=== PATIENT | female | born 1995 | race Caucasian/White ===

== ENCOUNTER 2020-03-24 07:21 | Emergency (ER) | payer OTHER, SELFPAY ==
[2020-03-24] VITALS (11 sets, daily range): BP systolic 100–116; BP diastolic 64–72; PULSE 68–82; RESP 15–16; TEMP 36.1; O2SAT 95–100
--- NOTE | ~2020-03-24 | XR_ITS ---
EXAMINATION: XR chest 1V portable DATE: 03/24/2020 08:47 INDICATION: Upper abdominal pain. TECHNIQUE: A single frontal view of the chest was obtained. COMPARISON: Chest 2 views 09/18/2018 FINDINGS: The chest demonstrates clear lungs without pneumonia, pleural effusion, or pneumothorax. Th e heart size is normal. IMPRESSION: 1. No acute cardiopulmonary disease. Reviewed, dictated and finalized at location A.
--- NOTE | ~2020-03-24 | CT_ITS ---
EXAMINATION: CT abdomen pelvis w con DATE: 03/24/2020 09:06 INDICATION: Upper abdominal pain. Nausea and fever. TECHNIQUE: Computed tomography (CT) of the abdomen and pelvis was performed with 100 mL Omnipaque 350 intravenous contrast. Automated exposure control and iterative reconstruction technique were employe d. The dose-length product was 394.89 mGy-cm. COMPARISON: None. FINDINGS: The visualized portions of the lung bases are clear without pneumonia or pleural effusion. The heart size is normal. No pericardial effusion. The liver, gallbladder, spleen, pancreas, adrenal glands, and kidneys are normal. There are no dilated loops of bowel. The appendix is normal. There is an intrauterine device in expected position. There is trace pelvic ascites. There is a borderline en larged right external iliac lymph node, likely reactive. There is a small umbilical hernia containing fat. There is a benign bone island in right femoral head. IMPRESSION: 1. Small umbilical hernia containing fat. Reviewed, dictated and finalized at location A.
--- NOTE | ~2020-03-24 | US_ITS ---
EXAMINATION: US right upper quadrant DATE: 03/24/2020 11:11 INDICATION: Right upper quadrant abdominal pain. Nausea. TECHNIQUE: Multiple grayscale and Doppler ultrasound images of the abdomen were obtained. COMPARISON: CT dated 03/24/2020 FINDINGS: Liver has normal echogenicity and contour, with a smooth surface. No liver lesion identified. No intr ahepatic biliary duct dilation suspected. Portal venous flow was seen in the hepatopetal, normal dire ction and has normal Doppler waveform. The gallbladder is normal in appearance. Small amount of hypoe choic sludge in the dependent gallbladder. There is no shadowing cholelithiasis. The common bile duct measures 4 mm, which is normal. Sonographic [place] sign was reported as negative by the field crop farm worker. Right kidney measures 9.6 x 4.0 x 5.3 cm with normal echogenicity and no hydronephrosis. The pancreat ic head and body are normal in appearance. The pancreatic tail is not visualized. Visualized portion s of the proximal to mid inferior vena cava and aorta are normal. IMPRESSION: 1. Small amount of sludge but no cholelithiasis within the otherwise normal gallbladder. Reviewed, dictated and finalized at location B. IMPRESSION: 1. Small amount of sludge but no cholelithiasis within the otherwise normal gal lbladder.
[2020-03-24 07:56] LABS: Hematocrit 41.7 % (37.0-47.0); Hemoglobin 14.6 g/dL (12.0-15.0); Mean Corpuscular Hemoglobin 30.5 pg (26-34); Mean Corpuscular Volume 87.2 fl (80-100); Mean Platelet Volume 9.5 fl (7.4-10.4); Platelet Count Result 157 k/mm3 (150-375); Red Blood Count 4.78 M/mm3 (4.2-5.4)
[2020-03-24 08:01] LABS: Alanine Aminotransferase 175 U/L (4-35); Albumin Level 4.1 g/dL (3.5-5.1); Alkaline Phosphatase 102 U/L (38-126); Anion Gap 9 mmol/L (8-16); Aspartate Amino Transferase 164 U/L (14-36); Bilirubin,Total 0.4 mg/dL (0.2-1.3); Blood Urea Nitrogen 7 mg/dL (7-17); Calcium 9.1 mg/dL (8.4-10.2); Carbon Dioxide 27 mmol/L (22-30); Chloride 102 mmol/L (98-107); Estimated CRCL calculation 91 ml/min; Estimated Glomerular Filt Rate > 60; Glucose 90 mg/dL (65-105); Lipase 53 U/L (23-300); Potassium 3.9 mmol/L (3.4-5.0); Sodium 138 mmol/L (137-145)
[2020-03-24 08:07] LABS: Add Urine Microscopic? YES; Appearance Urine Cloudy (Clear); Bacteria Urine Trace /hpf; Bilirubin Urine Negative (Negative); Blood Urine Negative (Negative); Color Urine Yellow (Yellow); Glucose Urine UA Negative (Negative); Ketones Urine Trace mg/dL (Negative); Leukocyte Esterase Ur Negative LEU/UL (Negative); Mucus Urine Moderate /lpf; Nitrate Urine Negative (Negative); Protein Urine 1+ mg/dL (Negative); Specific Grav Ur 1.027 (1.001-1.035); Squamous Epithelial Cell Urine Many /hpf (Few); Urobilinogen Urine Negative mg/dL (<2.0); WBC Urine 0-3 /hpf
--- NOTE | 2020-03-24 08:12 | PC.NURSE ---
ERP AT BEDSIDE FOR ASSESSMENT.
[2020-03-24 08:26] LABS: Atypical Lymphocytes Present; Band Neutrophils Percent 5 % (0-6); Eosinophils Absolute Manual 0.11 K/mm3 (0.02-0.5); Eosinophils Percent Manual 1 % (0-4); Lymphocytes Absolute Manual 8.03 K/mm3 (1.1-4.5); Monocytes Absolute Manual 0.88 K/mm3 (0.1-0.90); Monocytes Percent Manual 8 % (3-9); Neutrophils Absolute Manual 1.98 K/mm3 (1.7-7.2); Neutrophils Percent Manual 13 % (46-73); Total Cells Counted 100
[2020-03-24 08:27] LABS: Platelet Estimate Adequate (Adequate)
--- NOTE | 2020-03-24 08:30 | ED.ABDPAIN ---
HPI - Abdominal Pain General Chief Complaint: Abdominal Pain Stated Complaint: abd pain Time Seen by Provider: 03/24/20 07:38 Source: patient and family Mode of arrival: ambulatory Limitations: no limitations History of Present Illness HPI narrative: 24 years old white female presents with upper abdominal pain bilaterally started 5 days ago. Patient also with running fever at that time, COVID-19 was negative at that time. The pain is constant, squeezing, associated with nausea and possible constipation Patient denies any vomiting, diarrhea, chest pain or back pain or urinary symptoms. 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 No history of abdominal surgery. History of GERD and depression. Patient does not smoke or drink or uses drugs. Related Data Home Medications Medication Instructions Recorded Confirmed escitalopram oxalate [Lexapro] 5 mg PO DAILY 03/24/20 Allergies Allergy/AdvReac Type Severity Reaction Status Date / Time amoxicillin Allergy Unknown Verified 09/19/18 13:56 Penicillins Allergy Unknown Verified 09/13/11 09:31 Sulfa (Sulfonamide Allergy Unknown Verified 09/19/18 13:56 Antibiotics) CEPHALEXIN MONOHYDRATE Allergy Intermediate SEVERE Uncoded 12/08/17 16:45 STOMACH UPSET/YEAST INFECTION PENICILLIN Allergy Intermediate SEVERE Uncoded 12/30/10 13:55 NAUSEA/YEAST INFECTION Review of Systems Review of Systems: Narrative: CONSTITUTIONAL: Denies fever, chills, or sweats. EYES: Denies visual changes, redness, or discharge. ENT: Denies rhinorrhea, congestion, sore throat, or otalgia. CARDIOVASCULAR: Denies chest pain, palpitations, or edema. RESPIRATORY: Denies cough or dyspnea. GASTROINTESTINAL: Denies abdominal pain, nausea, vomiting, or diarrhea. GENITOURINARY: Denies dysuria or hematuria. SKIN: Denies rash or itching. MUSCULOSKELETAL: Denies back pain, joint pain, or myalgia. NEUROLOGIC: Denies headache, numbness, or weakness. PSYCHIATRIC: Denies anxiety or depression. [facility] Past Medical History Medical History Depression GERD (gastroesophageal reflux disease) Family History Family History Father Family history of thyroid disease Hypertension Grandparent Acute myocardial infarction, Onset Age: 75 Other Family history of cardiovascular disease Family history of malignant melanoma Family history of malignant neoplasm of breast Family history of malignant neoplasm of skin Family history of mental disorder Family history of restless legs syndrome Family history of suicide Social History Social History Smoking status: Never smoker Alcohol intake: current Gender identity (if verbalized by the patient): Female Exam Narrative: Exam Narrative: General appearance: Well-developed, well-nourished, does not look in pain, mother at the bedside Skin: Normal color Head: Normocephalic, nontraumatic Eyes: Clear conjunctiva ENT: Oropharynx normal, ears normal, nose normal Neck: Supple, nontender Chest and respiratory: Airway patent, no respiratory distress, no accessory muscle use Heart: Regular rate/rhythm Abdomen: Soft, mild to moderate tenderness right upper quadrant, right lower quadrant, no guarding or rebound no organomegaly, quiet bowel sounds Vascular: Normal peripheral pulses, normal capillary refill. Musculoskeletal: Normal range of motion, nontender back Neurologic: Alert and oriented ?3, DIETARY AIDE TEACHER is normal as tested, no gross motor deficit Course Vital Signs Vital signs: Vital Signs Blood Pressure 110/69
[2020-03-24] MEDS: HYDROmorphone HCL INJ (*CRX) 1 MG/ML SYR 0.5 MG IV PUSH (08:47)
[2020-03-24] MEDS: ONDANSETRON INJ 4 MG/2 ML VIAL IV PUSH (08:47)
[2020-03-24] MEDS: SODIUM CHLORIDE 0.9% IV 1,000 ML 999 ML IV CONT (08:48)
--- NOTE | 2020-03-24 08:55 | PC.NURSE ---
PT TO CT AT THIS TIME IN STRETCHER.
--- NOTE | 2020-03-24 11:30 | PC.NURSE ---
BRIANNA KILGORE INFORMED THAT PT RESULTS ARE BACK AND FAMILY WOULD LIKE AN UPDATE FROM HIM. NO RESPONSE.
== END 2020-03-24 12:10 | disposition home or self-care (01) ==
PROVIDERS: Emergency Provider Emergency Medicine; PCP Family Medicine
DX: R10.10 Upper abdominal pain, unspecified (principal); F32.9 Major depressive disorder, single episode, unspecified; K21.9 Gastro-esophageal reflux disease without esophagitis
CPT/HCPCS: 36415; 71045; 74177; 76705; 80053; 81001; 81025; 83690; 85025; 96361; 96374; 96375; 99284; J1170; J2405; J7030; Q9967

== ENCOUNTER 2020-03-28 09:01 | Outpatient (CLI) | payer OTHER, SELFPAY ==
[2020-03-28 09:24] LABS: Basophils Absolute Auto 0.2 K/mm3 (0.0-0.1); Eosinophils Percent Auto 0.3 % (0-4.4); Hematocrit 42.1 % (37.0-47.0); Hemoglobin 14.3 g/dL (12.0-15.0); Immature Granulocyte Absolute 0.03 K/mm3 (0.00-0.031); Immature Granulocyte Percent A 0.2 % (0-0.5); Lymphocytes Absolute Auto 11.58 K/mm3 (0.9-3.2); Lymphocytes Percent Auto 75.3 % (18.3-44.2); Mean Corpuscular Hemoglobin 30.4 pg (26-34); Mean Corpuscular Volume 89.6 fl (80-100); Mean Platelet Volume 9.4 fl (7.4-10.4); Monocytes Absolute Auto 0.9 K/mm3 (0.1-0.6); Monocytes Percent Auto 5.5 % (2.6-8.5); Neutrophils Absolute Auto 2.7 K/mm3 (1.3-6.7); Neutrophils Percent Auto 17.7 % (45.5-73.1); Platelet Count Result 192 k/mm3 (150-375); Red Cell Distribution Width 12.4 % (11.5-14.5); White Blood Count 15.4 K/mm3 (4.5-10.0)
[2020-03-28 09:37] LABS: Alanine Aminotransferase 443 U/L (4-35); Albumin Level 4.4 g/dL (3.5-5.1); Alkaline Phosphatase 109 U/L (38-126); Anion Gap 7 mmol/L (8-16); Aspartate Amino Transferase 191 U/L (14-36); Bilirubin,Total 0.3 mg/dL (0.2-1.3); Blood Urea Nitrogen 9 mg/dL (7-17); Calcium 9.3 mg/dL (8.4-10.2); Carbon Dioxide 30 mmol/L (22-30); Chloride 103 mmol/L (98-107); Estimated Glomerular Filt Rate > 60; Glucose 80 mg/dL (65-105); Potassium 4.3 mmol/L (3.4-5.0); Sodium 140 mmol/L (137-145)
[2020-03-28 12:39] LABS: Atypical Lymphocytes Present; Platelet Estimate Adequate (Adequate)
== END 2020-03-28 09:02 | disposition home or self-care (01) ==
PROVIDERS: PCP Family Medicine; Visit Provider Physician Assistant
DX: R10.9 Unspecified abdominal pain (principal); R74.8 Abnormal levels of other serum enzymes
CPT/HCPCS: 36415; 80053; 85025

== ENCOUNTER 2020-04-03 08:52 | Outpatient (CLI) | payer OTHER, SELFPAY ==
--- NOTE | ~2020-04-03 | NM_ITS ---
EXAMINATION: NM hepatobiliary w pharm DATE: 04/03/2020 11:23 INDICATION: Abdominal pain COMPARISON: None. TECHNIQUE: 5 mCi Tc-99m mebrofenin (Choletec) was administered intravenously. Scintigraphic images o f the abdomen were obtained for one hour. 1.4 mcg sincalide (Kinevac) was administered by slow intrav enous infusion, and imaging was continued for 30 minutes. Gallbladder ejection fraction was calculate d by the technologist. FINDINGS: There is normal clearance of radiotracer from the blood pool. There is homogeneous tracer uptake by t he liver. Activity progresses to the gallbladder and bowel. The gallbladder ejection fraction (GBEF) is 27% (normal 10-90%, but most patient with gallbladder dysfunction have GBEF < 35% which does over lap with the normal range). IMPRESSION: 1. Gallbladder ejection fraction is at the lower limits of normal. This could be normal but is also within the range of overlap with gallbladder dysfunction or chronic cholecystitis in the appropriate clinical setting. Reviewed, dictated and finalized at location A.
== END 2020-04-03 08:53 | disposition home or self-care (01) ==
PROVIDERS: PCP Family Medicine; Visit Provider Family Medicine
DX: R10.9 Unspecified abdominal pain (principal)
CPT/HCPCS: 78227; A9537; J2805

== ENCOUNTER 2020-04-04 07:29 | Outpatient (CLI) | payer OTHER, SELFPAY ==
[2020-04-04 07:46] LABS: Basophils Absolute Auto 0.1 K/mm3 (0.0-0.1); Basophils Percent Auto 0.8 % (0.2-1.2); Eosinophils Absolute Auto 0.1 K/mm3 (0-0.3); Eosinophils Percent Auto 1.1 % (0-4.4); Hematocrit 39.6 % (37.0-47.0); Hemoglobin 13.4 g/dL (12.0-15.0); Immature Granulocyte Absolute 0.02 K/mm3 (0.00-0.031); Immature Granulocyte Percent A 0.3 % (0-0.5); Mean Corpuscular HGB Conc 33.8 g/dl (32-36); Mean Corpuscular Hemoglobin 30.7 pg (26-34); Mean Corpuscular Volume 90.6 fl (80-100); Monocytes Absolute Auto 0.8 K/mm3 (0.1-0.6); Monocytes Percent Auto 11.6 % (2.6-8.5); Neutrophils Absolute Auto 1.3 K/mm3 (1.3-6.7); Neutrophils Percent Auto 18.2 % (45.5-73.1); Platelet Count Result 261 k/mm3 (150-375); Red Blood Count 4.37 M/mm3 (4.2-5.4); Red Cell Distribution Width 12.6 % (11.5-14.5); White Blood Count 7.1 K/mm3 (4.5-10.0)
[2020-04-04 08:01] LABS: Alanine Aminotransferase 73 U/L (4-35); Albumin Level 4.1 g/dL (3.5-5.1); Alkaline Phosphatase 70 U/L (38-126); Anion Gap 6 mmol/L (8-16); Aspartate Amino Transferase 42 U/L (14-36); Bilirubin,Total 0.5 mg/dL (0.2-1.3); Blood Urea Nitrogen 10 mg/dL (7-17); Calcium 8.9 mg/dL (8.4-10.2); Carbon Dioxide 28 mmol/L (22-30); Chloride 105 mmol/L (98-107); Estimated Glomerular Filt Rate > 60; Glucose 83 mg/dL (65-105); Potassium 4.1 mmol/L (3.4-5.0); Sodium 139 mmol/L (137-145)
[2020-04-04 08:40] LABS: Hepatitis B Surface Antigen Negative (Negative)
[2020-04-04 08:46] LABS: HAV RESULT Negative (Negative); Hepatitis B Core IgM Result Negative (Negative)
[2020-04-04 08:57] LABS: Hepatitis C Virus Antibody Negative (Negative)
[2020-04-04 09:04] LABS: Atypical Lymphocytes Present; Platelet Estimate Adequate (Adequate)
== END 2020-04-04 07:30 | disposition home or self-care (01) ==
PROVIDERS: PCP Family Medicine; Visit Provider Physician Assistant
DX: R10.9 Unspecified abdominal pain (principal); R74.8 Abnormal levels of other serum enzymes
CPT/HCPCS: 36415; 80053; 80074; 85025

== ENCOUNTER 2020-05-11 14:00 | Outpatient (CLI) | payer OTHER, SELFPAY ==
[2020-05-11 14:30] LABS: Alanine Aminotransferase 18 U/L (4-35); Albumin Level 4.5 g/dL (3.5-5.1); Alkaline Phosphatase 61 U/L (38-126); Amylase 66 U/L (30-110); Aspartate Amino Transferase 30 U/L (14-36); Bilirubin,Total 0.6 mg/dL (0.2-1.3); Lipase 60 U/L (23-300)
== END 2020-05-11 14:01 | disposition home or self-care (01) ==
LOC: ANHSURGERY 14:03
PROVIDERS: PCP Family Medicine; Visit Provider Surgery
DX: Z01.818 Encounter for other preprocedural examination (principal); K81.1 Chronic cholecystitis
CPT/HCPCS: 36415; 80076; 82150; 83690; 86850; 86900; 86901

== ENCOUNTER 2020-05-16 00:44 | Outpatient (CLI) | payer OTHER, SELFPAY ==
[2020-05-16 19:13] LABS: SARS-CoV-2 RNA PCR Negative
== END 2020-05-16 00:45 | disposition home or self-care (01) ==
LOC: ANHCOVIDDT 00:44
PROVIDERS: PCP Family Medicine; Visit Provider Surgery
DX: Z01.818 Encounter for other preprocedural examination (principal); Z20.828 Contact with and (suspected) exposure to other viral communicable diseases
CPT/HCPCS: 87635; C9803; U0003

== ENCOUNTER 2020-05-19 01:14 | Day surgery (SDC) | payer OTHER, SELFPAY ==
[2020-05-06 15:38] VITALS: BMI 30.3
[2020-05-19] VITALS (10 sets, daily range): BP systolic 101–125; BP diastolic 43–72; PULSE 67–89; RESP 10–20; TEMP 36.1–36.3; O2SAT 100
[2020-05-19] MEDS: ACETAMINOPHEN 500 MG TABLET 1000 MG PO (08:20)
[2020-05-19] MEDS: KETOROLAC 15 MG/ML VIAL (*BKC) IV PUSH (08:30)
[2020-05-19] MEDS: LACTATED RINGERS 1,000 ML 30 ML IV CONT ×2 (08:30→10:48)
--- NOTE | 2020-05-19 08:30 | WPDANESEPPF ---
Anes - Initial Pre Proc Eval Procedure: Operation Date: 05/19/20 10:00 Proposed Procedures p Laparoscopic Cholecystectomy, Possible Open - Andry Weiss DO Date/Time: 05/19/20 08:30 Surgeon: Andry Weiss DO Pre Op Diagnosis: Chronic Cholecystitis Patient Data Age: 24 Gender: F Height: 5 ft Weight: 70.45 kg Allergies Allergy/AdvReac Type Severity Reaction Status Date / Time amoxicillin Allergy Intermediate Rash Verified 05/19/20 08:19 Sulfa (Sulfonamide Allergy Intermediate Rash Verified 05/19/20 08:19 Antibiotics) CEPHALEXIN MONOHYDRATE Allergy Intermediate SEVERE Uncoded 05/19/20 08:19 STOMACH UPSET/YEAST INFECTION PENICILLIN Allergy Intermediate Rash Uncoded 05/19/20 08:19 Home Medications Medication Instructions Recorded Confirmed Type escitalopram oxalate [Lexapro] 10 mg PO DAILY 03/24/20 05/19/20 History omeprazole 20 mg capsule,delayed 20 mg PO DAILY #30 cap 05/14/20 05/19/20 Rx release Patient hx anesthesia problems: none Family hx anesthesia problems: none PMFSH Past Medical History Medical History Costochondritis Depression GERD (gastroesophageal reflux disease) Pyelonephritis Unspecified asthma, uncomplicated Surgical History Surgical History H/O wisdom tooth extraction Family History Family History Father Family history of thyroid disease Hypertension Grandparent Acute myocardial infarction, Onset Age: 75 Other Family history of cardiovascular disease Family history of malignant melanoma Family history of malignant neoplasm of breast Family history of malignant neoplasm of skin Family history of mental disorder Family history of restless legs syndrome Family history of suicide Social History Social History Smoking status: Never smoker Second hand tobacco smoke exposure: No Alcohol intake: current Drinks per week: 6 Alcohol use details: socially Substance use: never Living arrangements: with family Gender identity (if verbalized by the patient): Female Spiritual care concerns: No Anes - Eval Final PreProcedure Day of Procedure 05/19/20 08:30 Patient weight: normal Heart: regular rate and rhythm Lungs: clear to auscultation Airway: Mallampati scale class II Neurological: alert and oriented Last oral intake: >/= 8 hours ASA classification: II Emergent: no Anesthetic plan: proceed Anesthesia type and monitoring: general ETT and standard monitoring Informed Consent: The patient's anesthetic plan and its attendant risks and benefits were discussed with the patient/family/POA. Questions were solicited and answers provided to the satisfaction of the patient/family/POA.
--- NOTE | 2020-05-19 09:35 | PM.IMHP ---
H&P: HPI History of Present Illness Date/Time: 05/19/20 09:35 Chief complaint: Chronic Cholecystitis Narrative: Deya Henson is a 24 year old female who presents for lap belinda. She reports no changes since last seen in office. Review of Systems Review of Systems: All systems reviewed & are unremarkable except as noted in HPI and below Constitutional: Constitutional: Denies chills, Denies fever(s), Denies headache(s) and Denies weight loss Eyes: Eyes: Denies change in vision ENT: Denies dizziness, Denies headache(s), Denies neck mass and Denies throat swelling Cardiovascular: Cardiovascular: Denies chest pain, Denies lightheadedness and Denies dyspnea Respiratory: Respiratory: Denies cough, Denies dyspnea and Denies wheezing Gastrointestinal: Gastrointestinal: Denies abdominal pain, Denies change in bowel habits, Denies nausea and Denies vomiting Genitourinary: Genitourinary: Denies hematuria and Denies dysuria Musculoskeletal: Musculoskeletal: Reports as per HPI Integumentary/Breasts: Skin/Breast: Reports as per HPI Neurologic: Denies dizziness and Denies headache(s) Allergic/Immunologic: Allergic/Immunologic: Denies throat swelling and Denies wheezing PMFSH Past Medical History Medical History Costochondritis Depression GERD (gastroesophageal reflux disease) Pyelonephritis Unspecified asthma, uncomplicated Surgical History Surgical History H/O wisdom tooth extraction Family History Family History Father Family history of thyroid disease Hypertension Grandparent Acute myocardial infarction, Onset Age: 75 Other Family history of cardiovascular disease Family history of malignant melanoma Family history of malignant neoplasm of breast Family history of malignant neoplasm of skin Family history of mental disorder Family history of restless legs syndrome Family history of suicide Social History Social History Smoking status: Never smoker Second hand tobacco smoke exposure: No Alcohol intake: current Drinks per week: 6 Alcohol use details: socially Substance use: never Living arrangements: with family Gender identity (if verbalized by the patient): Female Spiritual care concerns: No Meds Home Medications and Allergies Home Medications Medication Instructions Recorded Confirmed Type escitalopram oxalate [Lexapro] 10 mg PO DAILY 03/24/20 05/19/20 History omeprazole 20 mg capsule,delayed 20 mg PO DAILY #30 cap 05/14/20 05/19/20 Rx release Allergies Allergy/AdvReac Type Severity Reaction Status Date / Time amoxicillin Allergy Intermediate Rash Verified 05/19/20 08:19 Sulfa (Sulfonamide Allergy Intermediate Rash Verified 05/19/20 08:19 Antibiotics) CEPHALEXIN MONOHYDRATE Allergy Intermediate SEVERE Uncoded 05/19/20 08:19 STOMACH UPSET/YEAST INFECTION PENICILLIN Allergy Intermediate Rash Uncoded 05/19/20 08:19 Exam Const: General: no acute distress and alert Orientation/consciousness: patient oriented x3 HENMT: Head: normocephalic and atraumatic Ears: hearing grossly normal bilaterally General nose exam: Normal nares present Mouth: Yes Normal oral and palatal mucosa present Eyes: Periorbital: periorbital findings normal Sclera: sclerae normal EOM: EOMs intact bilaterally Neck: Neck: normal visual inspection, no lymphadenopathy and trachea midline Chest: Chest palpation & inspection: normal inspection of the chest Resp: Effort & Inspection: normal respiratory effort Auscultation: clear to auscultation bilaterally Cardio: Jugular venous distension: no JVD Rate: regular rate Rhythm: regular rhythm Heart sounds: S1 normal heart sound present and S2 normal heart sound present Peripheral
[2020-05-19] MEDS: CLINDAMYCIN 900 MG/D5W 50 ML 900 MG/50 ML PIGGYBACK 50 MG IVPB (09:47)
--- NOTE | 2020-05-19 10:43 | PM.PROC ---
Procedure Note - Detailed Date of procedure: 05/19/20 Pre-op diagnosis: Chronic Cholecystitis Post-op diagnosis: other (Chronic cholecystitis, peritoneal lesion) Procedure performed: 1. Laparoscopic Cholecystectomy 2. Laparoscopic excision of peritoneal lesion Description of procedure: Procedure as well as risks, benefits, and alternatives were discussed with patient. Written consent was obtained and placed in chart prior to procedure. The patient was brought back to surgical suite. Patient was placed in supine position on operating table. Time-out was done to confirm patient and procedure. Patient was then intubated by the anesthesia department. Abdomen was prepped and draped in sterile fashion using chlorhexidine prep. 0.5% bupivacaine with epinephrine was infiltrated at each site of incision. An 11 millimeter vertical incision was made at the superior portion of the umbilicus using a 15 blade scalpel. Blunt dissection was carried down to the linea alba. The linea alba was then incised using a 15 blade scalpel. The peritoneum was then bluntly entered. An 11 millimeter trocar was inserted and cabon dioxied insuflation was used to create a pneumoperitoneum. The camera was inserted and the abdomen was inspected. The patient was placed in reverse Trendelenberg position and rotated slightly to the left. A 5 millimeter incision was made in the epigastric region, and a 5 millimeter trocar was inserted under direct visualization. Two 5 millimeter incisions were made in the right upper quadrant, and two 5 millimeter trocars were inserted under direct visualization. The gallbladder was identified and grasped at the fundus and retracted superiorly. It was then grasped at the infundibulum retracted laterally. Careful dissection around the neck of the gallbladder was performed using blunt dissection with a [place] grasper and hook electrocautery. The cystic duct was identified, and a window was created behind it. The cystic artery was also identified and a window was created behind it. The critical view of safety was identified, visualizing the cystic duct running directly into the neck of the gallbladder, and the cystic artery running directly into the wall of the gallbladder. A 5 millimeter clip support team member was then used to place 2 clips proximally and 1 clip distally on both the cystic duct and cystic artery. They were then both transected using endoscopic scissors. Once safely away from the calvin hepatitis, the gallbladder was dissected free from the liver bed using hook electrocautery. Hemostasis was achieved along the way. The gallbladder was removed completely and then removed through the umbilical port. The liver bed was then inspected. Hemostasis appeared adequate, and our clips appeared secure. The area was gently irrigated with sterile saline. No other abnormalities were seen. The patient was flattened out in bed, and 1 final inspection was made around the abdominal cavity. There were several small peritoneal lesions near the diaphragm on the right side. Each of these were only about 1 mm in size. They were dark and pigmented. One of the peritoneal lesions was excised using hook electrocautery and scissors and this was sent to the lab for pathology. The ports were then removed under direct visualization, the camera was removed, and the pneumoperitoneum was released. The fascia of the umbilical incision was approximated using an 0 Vicryl [id number] suture. The skin of the incisions was approximated using 4-0 Monocryl subcuticular sutures. Exofin glue was applied on top. The patient was then awakened from anesthesia, extubated, and transferred to recovery. Anesthesia: GETA and local (0.5% bupivicaine with epinephrine) Surgeon: Andry Weiss DO Estimated blood loss (mL): 5 Complications: No immediate complications Condition: stable Disposition: same day Findings: This is a 24-year-old woman who presented with recurrent right upper qu
[2020-05-19] MEDS: ONDANSETRON INJ 4 MG/2 ML VIAL IV PUSH (11:07)
[2020-05-19] MEDS: diphenhydrAMINE HCl INJ 50 MG/ML VIAL 12.5 MG IV PUSH (12:02)
[2020-05-19] MEDS: fentaNYL CITRATE INJ (*CRX) 100 MCG/2 ML VIAL 25 MCG IV PUSH ×2 (12:22→12:36)
[2020-05-19] MEDS: oxyCODONE HCL (*CRX) 5 MG TAB IR PO (12:50)
== END 2020-05-19 13:50 | disposition home or self-care (01) ==
PROVIDERS: PCP Family Medicine; Visit Provider Surgery
PROC: 0FT44ZZ Resection of Gallbladder, Percutaneous Endoscopic Approach (ICD-10-PCS; CPT 47562; principal; 2020-05-19 10:00)
DX: K81.1 Chronic cholecystitis (principal); N80.3 Endometriosis of pelvic peritoneum; J45.909 Unspecified asthma, uncomplicated; K21.9 Gastro-esophageal reflux disease without esophagitis; F32.9 Major depressive disorder, single episode, unspecified
CPT/HCPCS: 47562; 58662; 88304; 88305; A9270; J0330; J1100; J1200; J1885; J2250; J2405; J2704; J2710; J3010; J7030; J7120

== ENCOUNTER 2021-10-07 10:42 | Emergency (ER) | payer OTHER, SELFPAY ==
[2021-10-07 10:57] VITALS: BP 114/62; PULSE 72; RESP 18; TEMP 36.6; O2SAT 100
--- NOTE | 2021-10-07 11:16 | ED.URI ---
HPI - URI/Sore Throat General Chief Complaint: Upper Respiratory Infection Stated Complaint: Sore Throat,Bilateral Ear Irritation Time Seen by Provider: 10/07/21 11:00 Source: patient Mode of arrival: ambulatory Limitations: no limitations History of Present Illness HPI Narrative: Deya is a 25-year-old female patient presenting to the clinic today with complaints of sore throat x3 days. She reports that she gets strep frequently and is concerned that she may have strep. She denies any fever or chills. Has had a dry cough and ear itching. MD elicited complaint: sore throat and nasal congestion Related Data Home Medications Medication Instructions Recorded Confirmed escitalopram oxalate [Lexapro] 10 mg PO DAILY 03/24/20 10/07/21 Allergies Allergy/AdvReac Type Severity Reaction Status Date / Time amoxicillin Allergy Intermediate Rash Verified 10/07/21 11:28 Sulfa (Sulfonamide Allergy Intermediate Rash Verified 10/07/21 11:28 Antibiotics) CEPHALEXIN MONOHYDRATE Allergy Intermediate SEVERE Uncoded 10/07/21 11:28 STOMACH UPSET/YEAST INFECTION PENICILLIN Allergy Intermediate Rash Uncoded 10/07/21 11:28 Review of Systems Review of Systems: Pertinent positives per HPI. Patient denies any fever, chills, rash, headache, visual changes, dizziness, cough, shortness of breath, chest pain, palpitations, nausea, vomiting, diarrhea, constipation, abdominal pain, or any urinary issues. [facility] Past Medical History Medical History Chronic cholecystitis Costochondritis Depression Gallbladder sludge GERD (gastroesophageal reflux disease) Pyelonephritis Unspecified asthma, uncomplicated Surgical History Surgical History H/O wisdom tooth extraction Hx laparoscopic cholecystectomy 05.19.20 Laparoscopic Cholecystectomy, Laparoscopic excision of peritoneal lesion Family History Family History Father Family history of thyroid disease Hypertension Grandparent Acute myocardial infarction, Onset Age: 75 Other Family history of cardiovascular disease Family history of malignant melanoma Family history of malignant neoplasm of breast Family history of malignant neoplasm of skin Family history of mental disorder Family history of restless legs syndrome Family history of suicide Social History Social History Smoking status: Never smoker Second hand tobacco smoke exposure: No Alcohol intake: current Drinks per week: 6 Alcohol use details: socially Substance use: never Gender identity (if verbalized by the patient): Female Spiritual care concerns: No Comments At the time of my signature, I reviewed and agree with the nursing past medical, surgical, social, and family history. There is no relevant family history pertinent to the patient complaint. Exam Narrative: General: Well-developed, well nourished, in no apparent distress Head: Normocephalic, atraumatic Eyes: Pupils equally round and reactive to light bilaterally, EOM intact, sclera and conjunctive clear, no discharge, lids normal Ears: TMs intact and dull ear canals clear, no drainage, grossly hearing normal. Nose: Nares patent, clear discharge, no inflammation, no sinus tenderness. Mouth: Oral pharynx without lesions or masses, good dentition, MMM. Oropharynx mildly red with very mild tonsillar swelling-small area to the left medial tonsil has white exudate Neck: Supple, trachea midline, no enlargement of anterior or posterior cervical nodes, no thyroid masses or goiter palpable. Cardio: Regular rate and rhythm, s1 and s2 normal, no murmur appreciated. Resp: Clear to auscultation bilaterally, no rhonchi, rales, wheezing or rubs Course Course Emergency Course: Portions of this r
== END 2021-10-07 11:27 | disposition home or self-care (01) ==
PROVIDERS: Emergency Provider Nurse Practitioner Family; PCP Family Medicine
DX: J02.9 Acute pharyngitis, unspecified (principal); K21.9 Gastro-esophageal reflux disease without esophagitis; J45.909 Unspecified asthma, uncomplicated
CPT/HCPCS: 87081; 87880; 99213; G0463

== ENCOUNTER 2021-12-03 11:04 | Outpatient (CLI) | payer OTHER, SELFPAY ==
--- NOTE | ~2021-12-03 | US_ITS ---
US breast RT complete DATE: 12/03/2021 11:40 INDICATION: Left breast lump, 5:00 area TECHNIQUE: Real-time and color flow imaging of complete right breast was performed COMPARISON: None FINDINGS: No suspicious mass or shadowing or increased vascularity is identified in the left breast. IMPRESSION: BI-RADS Category 1: Negative Reviewed, dictated and finalized at Location A. Reviewed, dictated and finalized at location A.
== END 2021-12-03 11:05 | disposition home or self-care (01) ==
PROVIDERS: PCP Family Medicine; Visit Provider Obstetrics & Gynecology
DX: N63.14 Unspecified lump in the right breast, lower inner quadrant (principal)
CPT/HCPCS: 76641

== ENCOUNTER 2022-09-16 11:13 | Outpatient (CLI) | payer BC, SELFPAY | END 2022-09-16 11:14 | disposition home or self-care (01) | LOC: ANHLAB 11:15 | PROVIDERS: PCP Family Medicine; Visit Provider Student in an Organized Health Care Education/Training Program | DX: R30.0 Dysuria (principal) | CPT/HCPCS: 87086 ==

== ENCOUNTER 2022-11-28 17:37 | Outpatient (CLI) | payer BC, SELFPAY ==
[2022-11-28 17:51] LABS: Hematocrit 38.6 % (37.0-47.0); Hemoglobin 13.4 g/dL (12.0-15.0)
== END 2022-11-28 17:38 | disposition home or self-care (01) ==
LOC: ANHLAB 17:38
PROVIDERS: PCP Family Medicine; Visit Provider Student in an Organized Health Care Education/Training Program
DX: Z97.5 Presence of (intrauterine) contraceptive device (principal)
CPT/HCPCS: 36415; 85014; 85018

== ENCOUNTER 2022-12-01 01:30 | Day surgery (SDC) | payer BC, SELFPAY ==
[2022-11-24 12:54] VITALS: BMI 31.4
--- NOTE | 2022-11-24 13:16 | PC.NURSE ---
Report to the Outpatient Waiting Room, entrance under the green pavilion located off [facility], at time _1200_ on date 12/01/22___. Planned Procedure Time: __1400_. Time changes happen often and if your time is changed the preop area will call you the afternoon before. - You and your visitor will be asked to self-screen and do not enter if you have any COVID symptoms. - A mask is optional within the hospital at this time. Patients may have clear liquids (water, carbonated beverages, clear teas, apple juice) until 3 hours prior to surgery with a maximum of 20 ounces. - No food from midnight until time of surgery Take the following medications with a SIP of water the morning of surgery: ESCITALOPRAM, JUNEL DO NOT STOP ANY OF YOUR OTHER PRESCRIPTION MEDICATIONS PRIOR TO SURGERY ?EXCEPT THE FOLLOWING Medications to discontinue per physician N/A Date to take last dose Please no make-up, nail burkinan, hairspray, perfume, deodorant, or body powder the day of surgery. No jewelry (including any body piercings) or valuables the day of surgery, leave them at home. Please take a shower or bath the night before, or the morning of, surgery with an antibacterial soap. Wear comfortable, loose fitting clothing. - Jewelry must be removed prior to entering the operating room. Rings and piercings that are not removed may be cut off. - The hospital will not accept responsibility for valuables. - Please leave all valuables, including medications, at home the day of surgery. If you are going home after surgery, a licensed stunt driver must drive you home. - NO public transportation without another adult if you receive anesthesia. - We recommend that an adult stay with you for 24 hours following discharge. - We also recommend that you do not drive, make important decision, drink alcoholic beverages, or take any drugs that were not prescribed by your health care provider for at least 24 hours after your discharge time. Follow any additional instructions given to you from your surgeon. If you or anyone in your household have experienced Covid symptoms in the past week, please notify your surgeon or the nurse liaison at the phone number below for possible testing. Telephone instructions given to _ALEXA_and asked if any additional questions and then verbalized understanding. Patient advised to call surgeon office or pre surgery nurse liaison [phone] if any additional questions.
--- NOTE | 2022-12-01 08:31 | PM.IMHP ---
H&P: HPI History of Present Illness Date/Time: 12/01/22 08:31 Chief Complaint: Retained IUD Narrative: 27-year-old female who presents for operative hysteroscopy and removal of retained IUD. Patient initially presented to the office with abnormal uterine bleeding in the setting of ParaGard IUD. Patient had IUD removed in the office. After removal of the IUD, it was noted that 1 of the arms was missing. Patient had pelvic ultrasound which showed a 2 mm hypo echogenic area in the right uterine horn. Suspect retained piece of IUD. Will plan for hysteroscopic removal Review of Systems Cardiovascular: Cardiovascular: Denies chest pain, Denies leg edema, Denies palpitations, Denies dyspnea and Denies dyspnea on exertion Respiratory: Respiratory: Denies cough, Denies dyspnea and Denies dyspnea on exertion Gastrointestinal: Gastrointestinal: Denies abdominal pain, Denies constipation, Denies diarrhea, Denies nausea and Denies vomiting Genitourinary: Genitourinary: Denies hematuria, Denies urinary frequency, Denies dysuria, Denies pelvic pain, Denies urinary incontinence and Denies vaginal discharge Neurologic: Reports system reviewed and no additional complaints, except as documented Psychiatric: Psychiatric: Reports no additional psychiatric complaints Endocrine: Endocrine: Denies palpitations PMFSH Past Medical History Medical History (Updated 12/01/22 @ 08:33 by Bob Perla MD) Cholecystitis, chronic Chronic cholecystitis Costochondritis Depression Encounter for insertion of ParaGard IUD 2016 Gallbladder sludge GERD (gastroesophageal reflux disease) Pyelonephritis Unspecified asthma, uncomplicated Surgical History Surgical History H/O wisdom tooth extraction Hx laparoscopic cholecystectomy 12.20 Laparoscopic Cholecystectomy, Laparoscopic excision of peritoneal lesion Family History Family History Father Family history of thyroid disease Hypertension Grandparent Acute myocardial infarction, Onset Age: 75 Other Family history of cardiovascular disease Family history of malignant melanoma Family history of malignant neoplasm of breast Family history of malignant neoplasm of skin Family history of mental disorder Family history of restless legs syndrome Family history of suicide Social History Social History (Updated 08/19/22 @ 09:03 by Jaleesa Gabriel) Social History: Caffeine- daily Smoking status: Never smoker Second hand tobacco smoke exposure: No Alcohol intake: never Drinks per week: 6 Alcohol use details: socially Substance use: never Substance use type: does not use Lack of Transportation: No Lack of Food: Never True Current Housing: I Have Housing Concerned About Future Housing: No Difficulty Paying Gas/Electric Bills: No Difficulty Paying for Meds: No Currently Unemployed: No Education: Associate Degree Difficulty w/ Childcare or Family Care: No Living arrangements: with family Gender identity (if verbalized by the patient): Female Spiritual care concerns: No Meds Home Medications and Allergies Home Medications Medication Instructions Recorded Confirmed Type escitalopram oxalate 20 mg tablet 20 mg PO DAILY #90 tabs 09/09/22 11/24/22 Rx copper 380 square mm intrauterine 1 device intrauterine ONCE 09/16/22 11/24/22 History device (ParaGard T 380A) norethindrone acetate 1.5 1 tablet PO DAILY 11/24/22 11/24/22 History mg-ethinyl estradiol 30 mcg tablet (Junel) Allergies Allergy/AdvReac Type Severity Reaction Status Date / Time amoxicillin Allergy Intermediate Rash Verified 11/24/22 13:13 Sulfa (Sulfonamide Allergy Intermediate Rash Verified 11/24/22 13:13 Antibiotics) CEPHALEXIN MONOHYDRATE Allergy Intermediate SEVERE Uncoded 11/24/22 13:13 STOMACH UPSET/YEAST INFECTION PENICILLIN All
[2022-12-01] MEDS: LACTATED RINGERS 1,000 ML 30 ML IV CONT (14:15)
[2022-12-01] MEDS: ACETAMINOPHEN 500 MG TABLET 1000 MG PO (14:15)
[2022-12-01 14:25] VITALS: BP 119/66; PULSE 72; RESP 14; TEMP 36.6; O2SAT 99
--- NOTE | 2022-12-01 14:26 | WPDANESEPPF ---
Anes - Initial Pre Proc Eval Procedure: Operation Date: 12/01/22 15:30 Proposed Procedures p Hysteroscopy with Removal of Intrauterine Device - Bob Perla MD Date/Time: 12/01/22 14:26 Surgeon: Bob Perla MD Pre Op Diagnosis: Broken IUD Patient Data Age: 27 Gender: F Height: 1.52 m Weight: 73 kg Allergies Allergy/AdvReac Type Severity Reaction Status Date / Time amoxicillin Allergy Intermediate Rash Verified 11/24/22 13:13 Sulfa (Sulfonamide Allergy Intermediate Rash Verified 11/24/22 13:13 Antibiotics) CEPHALEXIN MONOHYDRATE Allergy Intermediate SEVERE Uncoded 11/24/22 13:13 STOMACH UPSET/YEAST INFECTION PENICILLIN Allergy Intermediate Rash Uncoded 11/24/22 13:13 Home Medications Medication Instructions Recorded Confirmed Type escitalopram oxalate 20 mg tablet 20 mg PO DAILY #90 tabs 09/09/22 11/24/22 Rx copper 380 square mm intrauterine 1 device intrauterine ONCE 09/16/22 11/24/22 History device (ParaGard T 380A) norethindrone acetate 1.5 1 tablet PO DAILY 11/24/22 11/24/22 History mg-ethinyl estradiol 30 mcg tablet (Junel) Patient hx anesthesia problems: none Family hx anesthesia problems: none Results Review: All pre-operative results and documents have been reviewed as part of the pre-operative evaluation. [facility] Past Medical History Medical History Cholecystitis, chronic Chronic cholecystitis Costochondritis Depression Encounter for insertion of ParaGard IUD 2016 Gallbladder sludge GERD (gastroesophageal reflux disease) Pyelonephritis Unspecified asthma, uncomplicated Surgical History Surgical History H/O wisdom tooth extraction Hx laparoscopic cholecystectomy 05.19.20 Laparoscopic Cholecystectomy, Laparoscopic excision of peritoneal lesion Family History Family History Father Family history of thyroid disease Hypertension Grandparent Acute myocardial infarction, Onset Age: 75 Other Family history of cardiovascular disease Family history of malignant melanoma Family history of malignant neoplasm of breast Family history of malignant neoplasm of skin Family history of mental disorder Family history of restless legs syndrome Family history of suicide Social History Social History Social History: Caffeine- daily Smoking status: Never smoker Second hand tobacco smoke exposure: No Alcohol intake: never Drinks per week: 6 Alcohol use details: socially Substance use: never Substance use type: does not use Lack of Transportation: No Lack of Food: Never True Current Housing: I Have Housing Concerned About Future Housing: No Difficulty Paying Gas/Electric Bills: No Difficulty Paying for Meds: No Currently Unemployed: No Education: Associate Degree Difficulty w/ Childcare or Family Care: No Living arrangements: with family Gender identity (if verbalized by the patient): Female Spiritual care concerns: No Anes - Eval Final PreProcedure Day of Procedure 12/01/22 14:26 Patient weight: obese Heart: regular rate and rhythm Lungs: clear to auscultation Airway: Mallampati scale class II Neurological: alert and oriented Last oral intake: >/= 8 hours ASA classification: II Emergent: no Anesthetic plan: proceed Anesthesia type and monitoring: general GIVS and standard monitoring Results Review: All pre-operative results and documents have been reviewed as part of the pre-operative evaluation. Informed Consent: The patient's anesthetic plan and its attendant risks and benefits were discussed with the patient/family/POA. Questions were solicited and answers provided to the satisfaction of the patient/family/POA.
[2022-12-01] MEDS: LIDOCAINE HCL 1% LOCAL INJ 10 ML VIAL 8 ML INFILTRATE (16:19)
[2022-12-01 16:37] VITALS: BP 120/67; PULSE 72; RESP 14; O2SAT 100
--- NOTE | 2022-12-01 16:37 | P.OP_ITS ---
Procedure Note - Detailed Date of Procedure 12/01/22 Pre-op Diagnosis Broken IUD Post-op Diagnosis Same Procedure Performed paracervical block hysteroscopy Surgeon Bob Perla MD Anesthesia General Indications retained IUD Findings normal appearing intrauterine cavity. Normal tubal ostia bilaterally. Description of Procedure Deya Henson presents for hysteroscopy with removal of IUD. She was counse led as to the indications, risks, benefits, and alternatives to surgery, with the risks including bleeding, infection, damage to surrounding organs, VTE, and complications of anesthesia. Her verbal and written consent was obtained. PROCEDURE: The patient was taken to the OR and general anesthesia induced. She was prepped and draped in Marcus stirrups with support of the back and bilateral lower extremities. I/O catheterization performed of the bladder. The above findings were noted. Infiltration with 1% lidocaine at the 3 and 9 o'clock cervical positions was performed. A single tooth tenaculum was placed on the anterior lip of the cervix. The cervix was dilated to allow introduction of the hysteroscope. Hysteroscopy, using a normal saline medium, was performed and showed the above findings. the endometrial cavity was clear of any parts of IUD. Bilateral tubal ostia were identified and noted to be patent. The patient tolerated the procedure well. Sponge, lap, and needle counts were c orrect. The patient was taken to the recovery room in stable condition. Estimated Blood Loss 5 Urine Output 25 Drains No Packing No Pathology None sent Complications No immediate complications Condition Stable Disposition PACU [facility] Billing Surgery - Charge Forward: Surgery Billing
[2022-12-01 17:05] VITALS: BP 119/79; PULSE 72; RESP 14; O2SAT 100
[2022-12-01 17:35] VITALS: BP 115/72; PULSE 69; RESP 14
== END 2022-12-01 17:35 | disposition home or self-care (01) ==
PROVIDERS: PCP Family Medicine; Visit Provider Student in an Organized Health Care Education/Training Program
PROC: 0U5B8ZZ Destruction of Endometrium, Via Natural or Artificial Opening Endoscopic (ICD-10-PCS; CPT 58563; principal; 2022-12-01 15:30)
DX: T83.39XA Other mechanical complication of intrauterine contraceptive device, initial encounter (principal); Y84.8 Other medical procedures as the cause of abnormal reaction of the patient, or of later complication, without mention of misadventure at the time of the procedure; F32.A Depression, unspecified; E66.9 Obesity, unspecified; Z68.31 Body mass index [BMI] 31.0-31.9, adult
CPT/HCPCS: 58562; A9270; J1100; J2250; J2405; J2704; J3010; J7120

== ENCOUNTER 2022-12-08 17:19 | Outpatient (CLI) | payer BC, SELFPAY ==
--- NOTE | ~2022-12-08 | XR_ITS ---
EXAM: XR pelvis min 3V DATE: 12/08/2022 17:36 HISTORY: T83.32XA - Displacement of intrauterine contraceptive dev... . COMPARISON: None available. FINDINGS: Normal mineralization. No fracture or dislocation. No lytic or blastic lesion. Joint space s and physes are maintained. No erosion or periosteal change. Soft tissues within normal limits. No r adiopaque foreign body. IMPRESSION: Normal pelvis radiograph findings. No IUD present. Reviewed, dictated and finalized at location K.
== END 2022-12-08 17:20 | disposition home or self-care (01) ==
PROVIDERS: PCP Family Medicine; Visit Provider Student in an Organized Health Care Education/Training Program
DX: T83.32XA Displacement of intrauterine contraceptive device, initial encounter (principal)
CPT/HCPCS: 72190

== ENCOUNTER 2022-12-31 08:08 | Emergency (ER) | payer BC, SELFPAY ==
[2022-12-31 08:30] VITALS: BP 115/65; PULSE 82; RESP 18; TEMP 36.7; O2SAT 100
--- NOTE | 2022-12-31 08:41 | ED.URI ---
HPI - URI/Sore Throat General Chief Complaint: Upper Respiratory Infection Stated Complaint: sorethroat Time Seen by Provider: 12/31/22 08:41 Source: patient, RN notes reviewed and old records reviewed Mode of arrival: ambulatory Limitations: no limitations History of Present Illness HPI Narrative: 27-year-old female presents to the [facility] with complaints of a sore throat intermittently for about a week has taken allergy medication. Has had intermittent laryngitis, postnasal drainage. denies fevers. Denies any other symptoms MD elicited complaint: sore throat Onset (ago): week(s) (1) Related Data Home Medications Medication Instructions Recorded Confirmed norethindrone acetate 1.5 1 tablet PO DAILY 11/24/22 12/31/22 mg-ethinyl estradiol 30 mcg tablet (June) Allergies Allergy/AdvReac Type Severity Reaction Status Date / Time amoxicillin Allergy Intermediate Rash Verified 12/31/22 08:44 Sulfa (Sulfonamide Allergy Intermediate Rash Verified 12/31/22 08:44 Antibiotics) CEPHALEXIN MONOHYDRATE Allergy Intermediate SEVERE Uncoded 12/31/22 08:44 STOMACH UPSET/YEAST INFECTION PENICILLIN Allergy Intermediate Rash Uncoded 12/31/22 08:44 Review of Systems Review of Systems: All systems reviewed & are unremarkable except as noted in HPI and below Constitutional: Constitutional: Reports no additional constitutional complaints Eyes: Eyes: Reports no additional eye complaints ENT: Reports as per HPI, Reports post nasal drip and Reports sore throat Cardiovascular: Cardiovascular: Reports no additional cardiovascular complaints, Denies chest pain and Denies dyspnea Respiratory: Respiratory: Reports no additional respiratory complaints, Denies chest congestion, Denies cough and Denies dyspnea Gastrointestinal: Gastrointestinal: Reports no additional gastrointestinal complaints, Denies abdominal pain, Denies nausea and Denies vomiting Musculoskeletal: Musculoskeletal: Reports no additional musculoskeletal complaints Integumentary/Breasts: Skin/Breast: Reports system reviewed and no additional complaints, except as docu Neurologic: Reports system reviewed and no additional complaints, except as documented Psychiatric: Psychiatric: Reports no additional psychiatric complaints Allergic/Immunologic: Allergic/Immunologic: Reports no additional allergic/immunologic complaints PMFSH Past Medical History Medical History Cholecystitis, chronic Chronic cholecystitis Costochondritis Depression Encounter for insertion of ParaGard IUD 2016 Gallbladder sludge GERD (gastroesophageal reflux disease) Pyelonephritis Unspecified asthma, uncomplicated Surgical History Surgical History H/O wisdom tooth extraction Hx laparoscopic cholecystectomy 05.19.20 Laparoscopic Cholecystectomy, Laparoscopic excision of peritoneal lesion Family History Family History Father Family history of thyroid disease Hypertension Grandparent Acute myocardial infarction, Onset Age: 75 Other Family history of cardiovascular disease Family history of malignant melanoma Family history of malignant neoplasm of breast Family history of malignant neoplasm of skin Family history of mental disorder Family history of restless legs syndrome Family history of suicide Social History Social History Social History: Caffeine- daily Smoking status: Never smoker Second hand tobacco smoke exposure: No Alcohol intake: never Drinks per week: 6 Alcohol use details: socially Substance use: never Substance use type: does not use Lack of Transportation: No Lack of Food: Never True Current Housing: I Have Housing Concerned About Future Housing: No Difficulty Paying Gas/Electric Bills: No
== END 2022-12-31 09:03 | disposition home or self-care (01) ==
PROVIDERS: Emergency Provider Nurse Practitioner; PCP Family Medicine
DX: R09.82 Postnasal drip (principal); J02.9 Acute pharyngitis, unspecified; K21.9 Gastro-esophageal reflux disease without esophagitis; J45.909 Unspecified asthma, uncomplicated
CPT/HCPCS: 87081; 87880; 99213; G0463

== ENCOUNTER 2023-02-24 10:01 | Outpatient (CLI) | payer BC, SELFPAY ==
[2023-02-24 19:09] LABS: Basophils Absolute Auto 0.1 K/mm3 (0.0-0.1); Basophils Percent Auto 0.4 % (0.2-1.2); Eosinophils Absolute Auto 0.1 K/mm3 (0-0.3); Eosinophils Percent Auto 0.8 % (0-4.4); Hematocrit 46.4 % (37.0-47.0); Hemoglobin 14.9 g/dL (12.0-15.0); Immature Granulocyte Absolute 0.04 K/mm3 (0.00-0.031); Immature Granulocyte Percent A 0.3 % (0-0.5); Lymphocytes Absolute Auto 3.62 K/mm3 (0.9-3.2); Lymphocytes Percent Auto 28.1 % (18.3-44.2); Mean Corpuscular HGB Conc 32.1 g/dl (32-36); Mean Corpuscular Hemoglobin 31.3 pg (26-34); Mean Corpuscular Volume 97.5 fl (80-100); Mean Platelet Volume 10.6 fl (7.4-10.4); Monocytes Absolute Auto 0.8 K/mm3 (0.1-0.6); Monocytes Percent Auto 6.1 % (2.6-8.5); Neutrophils Absolute Auto 8.3 K/mm3 (1.3-6.7); Neutrophils Percent Auto 64.3 % (45.5-73.1); Platelet Count Result 344 k/mm3 (150-375); Red Blood Count 4.76 M/mm3 (4.2-5.4); White Blood Count 12.9 K/mm3 (4.5-10.0)
[2023-02-24 19:37] LABS: Anion Gap 8 mmol/L (8-16); Blood Urea Nitrogen 13 mg/dL (7-17); Calcium 9.4 mg/dL (8.4-10.2); Carbon Dioxide 28 mmol/L (22-30); Chloride 101 mmol/L (98-107); Cholesterol 190 mg/dL (0-200); Estimated Glomerular Filt Rate > 60; Glucose 65 mg/dL (65-110); HDL Direct 79 mg/dL; Potassium 4.2 mmol/L (3.4-5.0); Sodium 137 mmol/L (137-145); Triglycerides 112 mg/dL (<150)
[2023-02-24 19:49] LABS: LDL Cholesterol Direct 94 mg/dL
[2023-02-24 19:54] LABS: Vitamin D 25 Hydroxy 61.4 ng/mL
[2023-02-24 20:04] LABS: Thyroid Stimulating Hormone 0.995 uIU/mL (0.465-4.680)
== END 2023-02-24 10:02 | disposition home or self-care (01) ==
LOC: ANHGOSHLAB 10:03
PROVIDERS: PCP Family Medicine; Visit Provider Nurse Practitioner Family
DX: F41.9 Anxiety disorder, unspecified (principal); K21.9 Gastro-esophageal reflux disease without esophagitis; N94.6 Dysmenorrhea, unspecified
CPT/HCPCS: 36415; 80048; 80061; 82306; 84443; 85025

== ENCOUNTER 2023-09-25 16:55 | Outpatient (CLI) | payer OTHER, SELFPAY ==
[2023-09-25 20:15] LABS: Beta HCG Quantitative < 2.39 mIU/ML
== END 2023-09-25 16:56 | disposition home or self-care (01) ==
LOC: ANHLAB 16:57
PROVIDERS: PCP Family Medicine; Visit Provider Student in an Organized Health Care Education/Training Program
DX: N91.2 Amenorrhea, unspecified (principal)
CPT/HCPCS: 36415; 84702

== ENCOUNTER 2023-11-23 16:57 | Emergency (ER) | payer OTHER, SELFPAY ==
[2023-11-23 17:08] VITALS: BP 115/72; PULSE 70; RESP 18; TEMP 36.7; O2SAT 99
[2023-11-23 17:10] VITALS: BP 115/72; PULSE 70; RESP 18; TEMP 36.7; O2SAT 99
--- NOTE | 2023-11-23 17:28 | ED.URI ---
HPI - URI/Sore Throat General Chief Complaint: Upper Respiratory Infection Stated Complaint: Cold symptoms Time Seen by Provider: 11/23/23 17:12 Source: patient, RN notes reviewed and old records reviewed Mode of arrival: ambulatory Limitations: no limitations History of Present Illness HPI Narrative: 28-[facility] to [facility] for complaint of sore throat and bilateral ear fullness for 3 days. Patient reports taking Tylenol with little to no relief at home. Patient denies cough, fever, shortness of breath, chest pain, difficulty swallowing, pertinent medical history. Patient blew tolerate fluids by mouth. Respirations even and nonlabored. Patient in no acute distress. Related Data Allergies Allergy/AdvReac Type Severity Reaction Status Date / Time amoxicillin Allergy Intermediate Rash Verified 11/23/23 17:09 Sulfa (Sulfonamide Allergy Intermediate Rash Verified 11/23/23 17:09 Antibiotics) PENICILLIN Allergy Intermediate Rash Uncoded 11/23/23 17:09 CEPHALEXIN MONOHYDRATE AdvReac Intermediate SEVERE Uncoded 11/23/23 17:09 STOMACH UPSET/YEAST INFECTION Review of Systems Review of Systems: All systems reviewed & are unremarkable except as noted in HPI and below Constitutional: Constitutional: Reports no additional constitutional complaints Eyes: Eyes: Reports no additional eye complaints ENT: Reports as per HPI, Reports otalgia ( bilateral ear fullness) and Reports sore throat Cardiovascular: Cardiovascular: Reports no additional cardiovascular complaints, Denies chest pain and Denies dyspnea Respiratory: Respiratory: Reports no additional respiratory complaints, Denies cough and Denies dyspnea Musculoskeletal: Musculoskeletal: Reports no additional musculoskeletal complaints Neurologic: Reports system reviewed and no additional complaints, except as documented Psychiatric: Psychiatric: Reports no additional psychiatric complaints PMFSH Past Medical History Medical History Cholecystitis, chronic Chronic cholecystitis Costochondritis Depression Encounter for insertion of ParaGard IUD 2017 Gallbladder sludge GERD (gastroesophageal reflux disease) Pyelonephritis Unspecified asthma, uncomplicated Surgical History Surgical History H/O wisdom tooth extraction Hx laparoscopic cholecystectomy 05.19.20 Laparoscopic Cholecystectomy, Laparoscopic excision of peritoneal lesion Family History Family History Father Family history of thyroid disease Hypertension Grandparent Acute myocardial infarction, Onset Age: 75 Other Family history of cardiovascular disease Family history of malignant melanoma Family history of malignant neoplasm of breast Family history of malignant neoplasm of skin Family history of mental disorder Family history of restless legs syndrome Family history of suicide Social History Social History Social History: Caffeine- daily Smoking status: Never smoker Second hand tobacco smoke exposure: No Alcohol intake: never Drinks per week: 6 Alcohol use details: socially Substance use: never Substance use type: does not use Lack of Transportation: No Lack of Food: Never True Current Housing: I Have Housing Concerned About Future Housing: No Difficulty Paying Gas/Electric Bills: No Difficulty Paying for Meds: No Currently Unemployed: No Education: Associate Degree Difficulty w/ Childcare or Family Care: No Living arrangements: with family Gender identity (if verbalized by the patient): Female Spiritual care concerns: No Comments At the time of my signature, I reviewed and agree with the nursing past medical, surgical, social, and family history. There is no relevant family hist
== END 2023-11-23 17:29 | disposition home or self-care (01) ==
PROVIDERS: Emergency Provider Nurse Practitioner Family; PCP Family Medicine
DX: H66.91 Otitis media, unspecified, right ear (principal); K21.9 Gastro-esophageal reflux disease without esophagitis; J45.909 Unspecified asthma, uncomplicated
CPT/HCPCS: 87081; 87880; 99213; G0463

== ENCOUNTER 2024-01-18 10:46 | Outpatient (CLI) | payer OTHER, SELFPAY ==
[2024-01-18 11:48] LABS: Beta HCG Quantitative < 2.39 mIU/ML
[2024-01-18 12:19] LABS: Trichomonas Vag PCR NOT DETECTED (NOT DETECTE)
[2024-01-18 12:43] LABS: Chlamydia trachomatis NOT DETECTED (NOT DETECTE); Neisseria gonorrhoeae PCR NOT DETECTED (NOT DETECTE)
[2024-01-19 12:03] LABS: Progesterone 22.9 ng/mL
[2024-01-23 09:29] LABS: Testosterone Free 3.9 pg/mL (0.1-6.4); Testosterone Total 50 ng/dL (2-45)
[2024-01-23 14:33] LABS: Anti Mullerian Hormone,Female 2.85 ng/mL (0.69-13.39)
== END 2024-01-18 10:47 | disposition home or self-care (01) ==
LOC: ANHLAB 10:48
PROVIDERS: PCP Family Medicine; Visit Provider Obstetrics & Gynecology
DX: N92.6 Irregular menstruation, unspecified (principal)
CPT/HCPCS: 36415; 84144; 84402; 84403; 84702; 87491; 87591; 87661

== ENCOUNTER 2024-03-05 06:52 | Outpatient (CLI) | payer OTHER, SELFPAY ==
--- NOTE | ~2024-03-05 | XR_ITS ---
EXAMINATION: XR hysterosalpingogram DATE: 03/05/2024 12:16 INDICATION: Female infertility, unspecified. TECHNIQUE: Fluoroscopy was performed by the radiologist during contrast infusion into the endometrial cavity of the uterus by the primary physician. Fluoroscopy exposure time was 0.7 minutes. The total number of images was 8. FINDINGS: The intrauterine cavity is normal in morphology. The left fallopian tube is normal with nor mal free intraperitoneal spillage of contrast. A right fallopian tube is not identified. IMPRESSION: 1. Normal intrauterine cavity and left fallopian tube. 2. Right fallopian tube not opacified. Sensitivity is decreased by the intraperitoneal contrast arisi ng from the left fallopian tube. Reviewed, dictated and finalized at location A. IMPRESSION: 1. Normal intrauterine cavity and left fallopian tube. 2. Right fallopian tube not opacified. Sensitivity is decreased by the intraper itoneal contrast arising from the left fallopian tube.
[2024-03-05 07:57] LABS: Beta HCG Quantitative < 2.39 mIU/ML
== END 2024-03-05 06:53 | disposition home or self-care (01) ==
PROVIDERS: PCP Family Medicine; Visit Provider Obstetrics & Gynecology
DX: N97.9 Female infertility, unspecified (principal)
CPT/HCPCS: 36415; 58340; 74740; 84702; Q9966

== ENCOUNTER 2024-03-08 09:49 | Outpatient (CLI) | payer OTHER, SELFPAY ==
--- NOTE | ~2024-03-08 | US_ITS ---
EXAMINATION: US pelvic complete w TV DATE: 03/08/2024 10:25 INDICATION: N92.6 - Irregular menstruation, unspecified TECHNIQUE: Multiple transabdominal and endovaginal sonographic images of the pelvis were obtained. COMPARISON: 07/01/2019. FINDINGS: Uterus: 7.2 x 3.0 x 4.4 cm. Endometrial complex measures 5 mm. Right Ovary: 3.7 x 1.8 x 3.3 cm. Vascular flow is present. No adnexal mass. Left Ovary: 4.6 x 3.4 x 3.6 cm. Vascular flow is present. No adnexal mass. There is no free fluid in the pelvis. IMPRESSION: Normal pelvic sonogram findings. Reviewed, dictated and finalized at location K.
== END 2024-03-08 09:50 | disposition home or self-care (01) ==
PROVIDERS: PCP Family Medicine; Visit Provider Obstetrics & Gynecology
DX: N92.6 Irregular menstruation, unspecified (principal)
CPT/HCPCS: 76830; 76856

== ENCOUNTER 2024-04-30 06:54 | Outpatient (CLI) | payer OTHER, SELFPAY ==
[2024-04-30 21:59] LABS: Progesterone 27.9 ng/mL
== END 2024-04-30 06:55 | disposition home or self-care (01) ==
LOC: ANHLAB 06:56
PROVIDERS: PCP Family Medicine; Visit Provider Obstetrics & Gynecology
DX: N92.6 Irregular menstruation, unspecified (principal)
CPT/HCPCS: 36415; 84144

== ENCOUNTER 2024-05-27 06:43 | Outpatient (CLI) | payer OTHER, SELFPAY ==
[2024-05-29 02:38] LABS: Progesterone 21.9 ng/mL
== END 2024-05-27 06:44 | disposition home or self-care (01) ==
LOC: ANHLAB 06:44
PROVIDERS: PCP Family Medicine; Visit Provider Obstetrics & Gynecology
DX: N92.6 Irregular menstruation, unspecified (principal)
CPT/HCPCS: 36415; 84144

== ENCOUNTER 2024-07-15 09:00 | Emergency (ER) | payer OTHER, SELFPAY ==
[2024-07-15 09:14] VITALS: BP 117/66; PULSE 112; RESP 20; TEMP 36.6; O2SAT 100
--- NOTE | 2024-07-15 09:54 | ED_ITS ---
HPI - General Adult General Chief complaint: Upper Respiratory Infection Stated complaint: bodyaches History of Present Illness HPI narrative: Deya Wilkerson is a 28-year-old female who presents today with complaints of having productive cough congestion for 2 weeks. She states that last night she started to have body aches and she is feeling worse. She is not sure on fevers but she states that this cough has been ongoing and congestion. She states that she is about 5 weeks she has not followed up with OB to have have her 1st ultrasound to verify intrauterine . She called her OB originally with explained that she does not feel well wanted to be seen and they told her to come here. She denies any vaginal bleeding she states she does feel some lower abdominal cramping. I explained to her that with her cough and congestion for 2 weeks and productive cough will start her on azithromycin that is safe for for bronchitis, however I am not able to further evaluate her lower abdominal crampy pain and that she should either call her OB to have ultrasound or go to the ER. She is agreeable to this plan. Related Data Allergies Allergy/AdvReac Type Severity Reaction Status Date / Time amoxicillin Allergy Mild Rash Verified 07/15/24 09:30 Sulfa (Sulfonamide Allergy Mild Rash Verified 07/15/24 09:30 Antibiotics) PENICILLIN Allergy Mild Rash Uncoded 07/15/24 09:30 CEPHALEXIN MONOHYDRATE AdvReac Intermediate SEVERE Uncoded 07/15/24 09:30 STOMACH UPSET/YEAST INFECTION Review of Systems Review of Systems: All systems reviewed & are unremarkable except as noted in HPI and below PMFSH Past Medical History Medical History Encounter for insertion of ParaGard IUD 2017 Cholecystitis, chronic Gallbladder sludge Chronic cholecystitis Costochondritis Pyelonephritis Unspecified asthma, uncomplicated Depression GERD (gastroesophageal reflux disease) Surgical History Surgical History Hx laparoscopic cholecystectomy 12..20 Laparoscopic Cholecystectomy, Laparoscopic excision of peritoneal lesion H/O wisdom tooth extraction Family History Family History Father Family history of thyroid disease Hypertension Grandparent Acute myocardial infarction, Onset Age: 75 Other Family history of cardiovascular disease Family history of malignant melanoma Family history of malignant neoplasm of breast Family history of malignant neoplasm of skin Family history of mental disorder Family history of restless legs syndrome Family history of suicide Social History Social History Social History: Caffeine- daily Smoking status: Never smoker Second hand tobacco smoke exposure: No Alcohol intake: never Drinks per week: 6 Alcohol use details: socially Substance use: never Substance use type: does not use Lack of Transportation: No Lack of Food: Never True Current Housing: I Have Housing Concerned About Future Housing: No Difficulty Paying Gas/Electric Bills: No Difficulty Paying for Meds: No Currently Unemployed: No Education: Associate Degree Difficulty w/ Childcare or Family Care: No Living arrangements: with family Gender identity (if verbalized by the patient): Female Spiritual care concerns: No Exam Narrative: GENERAL: Well-appearing, well-nourished, and in no acute distress. HEAD: Normocephalic, atraumatic. EYES: PERRLA and EOMI. ENT: Nares clear, no rhinorrhea or epistaxis. Mucous membranes moist. Ronald pharynx without tonsillar hypertrophy exudate or other lesions. Bilateral TMs pearly bhat nonbulging NECK: Supple. No adenopathy or masses. No carotid bruits or JVD CHEST: Clear to auscultation. No respiratory distress. No wheezes rales or rhonchi HEART: Regular rate and rhythm. No murmur heard. Normal peripheral pulses. ABDOMEN: Soft, nontender, nondistended, normal active bowel sounds. EXTREMITIES: Normal range of motion. No edema. SKIN: Warm, dry, no rash. NEURO: No focal deficits. Alert and oriented x3. PSYCH: Normal mood and affect. Course Course Level of Care: Express Care Visit Vital Signs Vital signs: Vital Signs Temperature 36.6 C 07/15/24 09:14 Pulse Rate 112 H 07/15/24 09:14 Respiratory Rate 20 07/15/24 09:14 Blood Pressure 117/66 07/15/24 09:14 Pulse Oximetry 100 07/15/24 09:14 Oxygen Delivery Room Air 07/15/24 09:14 Temperature 36.6 C 07/15/24 09:14 Pulse Rate 112 H 07/15/24 09:14 Respiratory Rate 20 07/15/24 09:14 Blood Pressure 117/66 07/15/24 09:14 Pulse Oximetry 100 07/15/24 09:14 Oxygen Delivery Room Air 07/15/24 09:14 Medical Decision Making [facility] Narrative Medical decision making narrative: This 28 year old patient presents with symptoms most suggestive of respiratory tract infection. Lungs are clear without any respiratory distress or accessory muscle use. With the onset of her productive cough for 2 weeks and now feeling worse we will start her on azithromycin for bronchitis. Encouraged to take Tylenol every 6 hours for body swelling and fever Patient discharged home in stable condition with expectant management. Return precautions were provided. Procedures: Pulse oximetry interpretation - not hypoxic. Review of medical records. DISPOSITION: Discharged home in stable condition. IMPRESSION: acute bronchitis Medical Records Medical records reviewed: Yes I reviewed the external patient's medical records. Vital Signs Vital Signs: Vital Signs Temperature 36.6 C 07/15/24 09:14 Pulse Rate 112 H 07/15/24 09:14 Respiratory Rate 20 07/15/24 09:14 Blood Pressure 117/66 07/15/24 09:14 Pulse Oximetry 100 07/15/24 09:14 Oxygen Delivery Room Air 07/15/24 09:14 Temperature 36.6 C 07/15/24 09:14 Pulse Rate 112 H 07/15/24 09:14 Respiratory Rate 20 07/15/24 09:14 Blood Pressure 117/66 07/15/24 09:14 Pulse Oximetry 100 07/15/24 09:14 Oxygen Delivery Room Air 07/15/24 09:14 vitals reviewed Discharge Plan Discharge Clinical Impression: Bronchitis Patient Disposition: Home, Self-Care Condition: Stable Instructions: Antibiotic Form Additional Instructions: start taking azithromycin as ordered for the next 5 days. Push oral hydration drinking plenty of water, Gatorade popsicles. He may take Tylenol every 6 hours for your fever and body aches. Please follow-up with Ob as scheduled. If he develops any abdominal pain cramping vaginal bleeding then proceed to the ER for further evaluation. If you develop any chest pain and shortness of breath difficulty breathing go to the ER. Patient Language: Luxembourger Prescriptions: New azithromycin 250 mg tablet See Rx Instructions .ROUTE .COMPLEX Qty: 6 0RF Rx Instructions: For 250 mg dose pack: take 500 mg today (day 1), then 250 mg for 4 days (days 2-5) No Action letrozole 2.5 mg tablet 2.5 mg PO DAILY 5 Days Qty: 5 3RF Rx Instructions: begin between days 3 and 7 of menstrual cycle medroxyprogesterone [Provera] 10 mg tablet 10 mg PO DAILY Qty: 10 0RF escitalopram oxalate 20 mg tablet 20 mg PO DAILY Qty: 90 0RF Follow-up/Referrals: Alfreda Carmona MD [Primary Care Provider] - 3 Days Time of Disposition: 10:03
[2024-07-15 10:29] LABS: EDCOVIDSCREEN Negative (Negative); EDINFLUASCREEN Positive (Negative); EDINFLUBSCREEN Negative (Negative)
== END 2024-07-15 10:05 | disposition home or self-care (01) ==
PROVIDERS: Emergency Provider Nurse Practitioner Family; PCP Family Medicine
DX: O99.511 Diseases of the respiratory system complicating pregnancy, first trimester (principal); Z3A.01 Less than 8 weeks gestation of pregnancy; J40 Bronchitis, not specified as acute or chronic; Z20.822 Contact with and (suspected) exposure to COVID-19; O99.611 Diseases of the digestive system complicating pregnancy, first trimester; K21.9 Gastro-esophageal reflux disease without esophagitis; O99.341 Other mental disorders complicating pregnancy, first trimester; F32.A Depression, unspecified
CPT/HCPCS: 87426; 87804; 99213; G0463

== ENCOUNTER 2024-08-15 13:03 | Outpatient (CLI) | payer OTHER, SELFPAY ==
[2024-08-15 13:34] LABS: Basophils Percent Auto 0.4 % (0.2-1.2); Eosinophils Absolute Auto 0.2 K/mm3 (0-0.3); Eosinophils Percent Auto 1.6 % (0-4.4); Hematocrit 40.4 % (37.0-47.0); Hemoglobin 13.8 g/dL (12.0-15.0); Immature Granulocyte Absolute 0.04 K/mm3 (0.00-0.031); Immature Granulocyte Percent A 0.4 % (0-0.5); Lymphocytes Absolute Auto 4.17 K/mm3 (0.9-3.2); Mean Corpuscular HGB Conc 34.2 g/dl (32-36); Mean Corpuscular Hemoglobin 30.9 pg (26-34); Mean Corpuscular Volume 90.6 fl (80-100); Mean Platelet Volume 9.6 fl (7.4-10.4); Monocytes Absolute Auto 0.6 K/mm3 (0.1-0.6); Monocytes Percent Auto 5.7 % (2.6-8.5); Neutrophils Absolute Auto 6.2 K/mm3 (1.3-6.7); Neutrophils Percent Auto 54.9 % (45.5-73.1); Platelet Count Result 287 k/mm3 (150-375); Red Blood Count 4.46 M/mm3 (4.2-5.4); Red Cell Distribution Width 12.3 % (11.5-14.5); White Blood Count 11.3 K/mm3 (4.5-10.0)
[2024-08-15 14:21] LABS: Syphilis IgG/IgM Antibody Negative (Negative)
[2024-08-15 14:25] LABS: Hepatitis B Surface Antigen Negative (Negative); Rubella IgG Antibody 43.8 IU/ML
[2024-08-15 14:30] LABS: HIV 1/2 Ab P24 Ag Result Negative (Negative)
[2024-08-16 12:28] LABS: CMV IgG Antibody <0.60 U/mL; Varicella IgG Antibody 8.82 S/CO
== END 2024-08-15 13:04 | disposition home or self-care (01) ==
PROVIDERS: Visit Provider Obstetrics & Gynecology
DX: N94.89 Other specified conditions associated with female genital organs and menstrual cycle (principal)
CPT/HCPCS: 36415; 84702; 85025; 86593; 86644; 86703; 86747; 86762; 86787; 86850; 86900; 86901; 87086; 87340; G0432

== ENCOUNTER 2024-08-16 08:03 | Outpatient (CLI) | payer OTHER, SELFPAY ==
--- NOTE | ~2024-08-16 | US_ITS ---
EXAMINATION: US OB <=14 wk fetus w TV DATE: 08/16/2024 09:10 INDICATION: Encounter for supervision of normal during first trimester TECHNIQUE: Real-time pelvic ultrasound utilizing both a transvaginal and transabdominal probe was pe rformed. The interpreting radiologist was not present for the study. COMPARISON: None. FINDINGS: The uterus measures 11.9 x 8.2 x 9.2 cm. There is an intrauterine gestational sac. A yolk sac and fe troy pole are identified. The crown rump length measures 3.8 cm, which correlates with an estimated ge stational age of 10 weeks and 5 days. heart motion is identified measuring 163 beats per minute (bpm) by M-mode Doppler. Normal cervical length of 3.7 cm The bilateral ovaries are not visualized. There is no free fluid in the pelvis. IMPRESSION: 1. Single living fetus . 2. Gestational age by ultrasound of 10 weeks 5 day(s) +/- 7 day(s) with ultrasound estimated date of delivery (SHIKHA) of 03/09/2025. Reviewed, dictated and finalized at location [facility]. [facility] [employer] IMPRESSION: 1. Single living fetus . 2. Gestational age by ultrasound of 10 weeks 5 day(s) +/- 7 day(s) with ultras ound estimated date of delivery (SHIKHA) of 03/09/2025.
== END 2024-08-16 08:04 | disposition home or self-care (01) ==
PROVIDERS: Visit Provider Obstetrics & Gynecology
DX: Z34.90 Encounter for supervision of normal pregnancy, unspecified, unspecified trimester (principal)
CPT/HCPCS: 76801; 76817

== ENCOUNTER 2024-09-06 09:10 | Outpatient (CLI) | payer OTHER, SELFPAY ==
[2024-09-06 10:50] LABS: Glucose 1 Hour PP 50gm Dose 156 mg/dL
== END 2024-09-06 09:11 | disposition home or self-care (01) ==
PROVIDERS: PCP Family Medicine; Visit Provider Obstetrics & Gynecology
DX: N94.89 Other specified conditions associated with female genital organs and menstrual cycle (principal)
CPT/HCPCS: 36415; 82947

== ENCOUNTER 2024-09-16 08:48 | Outpatient (CLI) | payer OTHER, SELFPAY ==
[2024-09-16 09:13] LABS: Glucose Fasting 74 mg/dL
[2024-09-16 11:46] LABS: Glucose 1 Hour 169 mg/dL
[2024-09-16 12:02] LABS: Glucose 2 Hour 127 mg/dL
[2024-09-16 12:48] LABS: Glucose 3 Hour 114 mg/dL
== END 2024-09-16 08:49 | disposition home or self-care (01) ==
LOC: ANHLAB 08:51
PROVIDERS: PCP Family Medicine; Visit Provider Obstetrics & Gynecology
DX: Z34.90 Encounter for supervision of normal pregnancy, unspecified, unspecified trimester (principal)
CPT/HCPCS: 36415; 82951; 82952

== ENCOUNTER 2024-10-28 07:33 | Observation (INO) | payer OTHER, SELFPAY ==
[2024-10-28] VITALS (36 sets, daily range): BP systolic 102–129; BP diastolic 55–77; PULSE 67–110; RESP 12–23; TEMP 36.6–37.1; O2SAT 82–100; BMI 34.0
--- NOTE | 2024-10-28 07:44 | ECG_ITS ---
Test Date: 2024-10-28 08:04:31 Measurements Intervals [place] Rate: 87 P: 38 OR: 156 QRS: 67 QRSD: 81 T: 14 QT: 376 QTc: 454 Interpretive Statements SINUS RHYTHM No previous ECG available for comparison Electronically Signed On 10-28-2024 10:52:43 CDT by Moises Gates M.D.
[2024-10-28 08:01] LABS: Basophils Percent Auto 0.2 % (0.2-1.2); Eosinophils Percent Auto 0.1 % (0-4.4); Hematocrit 40.5 % (37.0-47.0); Hemoglobin 13.6 g/dL (12.0-15.0); Immature Granulocyte Absolute 0.09 K/mm3 (0.00-0.031); Immature Granulocyte Percent A 0.5 % (0-0.5); Lymphocytes Absolute Auto 0.88 K/mm3 (0.9-3.2); Lymphocytes Percent Auto 5.3 % (18.3-44.2); Mean Corpuscular HGB Conc 33.6 g/dl (32-36); Mean Corpuscular Hemoglobin 30.7 pg (26-34); Mean Corpuscular Volume 91.4 fl (80-100); Mean Platelet Volume 9.2 fl (7.4-10.4); Monocytes Absolute Auto 0.3 K/mm3 (0.1-0.6); Monocytes Percent Auto 1.7 % (2.6-8.5); Neutrophils Absolute Auto 15.3 K/mm3 (1.3-6.7); Neutrophils Percent Auto 92.2 % (45.5-73.1); Platelet Count Result 307 k/mm3 (150-375); Red Blood Count 4.43 M/mm3 (4.2-5.4); Red Cell Distribution Width 12.9 % (11.5-14.5); White Blood Count 16.6 K/mm3 (4.5-10.0)
[2024-10-28] MEDS: SODIUM CHLORIDE 0.9% IV 1,000 ML 999 ML (08:04)
[2024-10-28 08:12] LABS: Alanine Aminotransferase 20 U/L (6-35); Alkaline Phosphatase 81 U/L (38-126); Anion Gap 8 mmol/L (4-12); Aspartate Amino Transferase 28 U/L (14-36); Bilirubin,Total 0.5 mg/dL (0.2-1.3); Blood Urea Nitrogen 9 mg/dL (7-17); Calcium 8.6 mg/dL (8.4-10.2); Carbon Dioxide 18 mmol/L (22-30); Chloride 108 mmol/L (98-107); Estimated CRCL calculation 118 ml/min; Estimated Glomerular Filt Rate > 60; Glucose 101 mg/dL (65-110); Potassium 3.9 mmol/L (3.4-5.0); Sodium 134 mmol/L (137-145)
[2024-10-28] MEDS: ONDANSETRON INJ 4 MG/2 ML VIAL IV PUSH (08:53)
[2024-10-28 09:24] LABS: Add Urine Microscopic? YES; Appearance Urine Clear (Clear); Bacteria Urine 4+ /hpf; Bilirubin Urine Negative (Negative); Blood Urine Negative (Negative); Color Urine Yellow (Yellow); Glucose Urine UA Negative (Negative); Ketones Urine 4+ mg/dL (Negative); Leukocyte Esterase Ur 1+ LEU/UL (Negative); Need Manual Microscopic Reviewed; Nitrate Urine Negative (Negative); Non Pathogenic Casts 0-2; Protein Urine 1+ mg/dL (Negative); RBC Urine 0-2 /hpf (0-2); Specific Grav Ur 1.026 (1.001-1.035); Squamous Epithelial Cell Urine Moderate /hpf (Few); Urobilinogen Urine 0.2 mg/dL (<2.0)
--- NOTE | 2024-10-28 09:55 | ED.SYNCOPE ---
HPI - Syncope General Chief Complaint: Syncope Stated Complaint: syncopy, 20 weeks Time Seen by Provider: 10/28/24 08:50 Source: patient and family (mother) Mode of arrival: ambulatory Limitations: no limitations History of Present Illness HPI narrative: This is a 29-year-old female approximately 20 weeks pregant last menstrual period 06/07/2024 and estimated due date 03/14/2025. Patient presents after a fall. She felt dizzy and she might pass out so she was trying to sit down. It was initially reported that patient had a syncopal episode however she states that while she did seem to lose muscle tone she did not lose consciousness. She was diaphoretic. When she fell she struck her left hip in chest on the bathtub. Patient reports having upper abdominal discomfort for several days. Describes an aching and burning sensation throughout. Has been having diarrhea, nauesea, vomiting. Approximately 4-5 episodes. Anterior placenta but otherwise no complications during . ObGyn is Dr Kasia Hand, seen recently in the office by a male OBGYN. No leakage of fluids. Experiencing some slight vaginal discharge, but no blood. Took acetaminophen and Unasom before bed as well as 81mg ASA. Feels slightly short of breath but has attributed this to . No chest pain or sick contacts. LBM 5:30 am. Related Data Home Medications Medication Instructions Recorded Confirmed Last Taken Type docosahexaenoic acid 200 mg mg PO 08/01/24 10/25/24 Unknown History capsule ( DHA) polyethylene glycol 3350 17 17 g PO DAILY 08/30/24 10/25/24 Unknown History gram/dose oral powder (Miralax) aspirin 81 mg tablet,delayed 81 mg PO DAILY 09/24/24 10/25/24 Unknown History release Allergies Allergy/AdvReac Type Severity Reaction Status Date / Time amoxicillin Allergy Mild Rash Verified 10/25/24 09:01 Sulfa (Sulfonamide Allergy Mild Rash Verified 10/25/24 09:01 Antibiotics) PENICILLIN Allergy Mild Rash Uncoded 10/25/24 09:01 CEPHALEXIN MONOHYDRATE AdvReac Intermediate SEVERE Uncoded 10/25/24 09:01 STOMACH UPSET/YEAST INFECTION PMFSH Past Medical History Medical History Costochondritis Pyelonephritis Unspecified asthma, uncomplicated Depression GERD (gastroesophageal reflux disease) Surgical History Surgical History (Updated 10/28/24 @ 21:09 by Sonia Carrera MD) History of hysteroscopy due to previous IUD malfunction/break Hx laparoscopic cholecystectomy 12.8.20 Laparoscopic Cholecystectomy, Laparoscopic excision of peritoneal lesion H/O wisdom tooth extraction Family History Family History Father Family history of thyroid disease Hypertension Grandparent Acute myocardial infarction, Onset Age: 75 Other Family history of cardiovascular disease Family history of malignant melanoma Family history of malignant neoplasm of breast Family history of malignant neoplasm of skin Family history of mental disorder Family history of restless legs syndrome Family history of suicide Social History Social History (Updated 10/28/24 @ 21:16 by Sonia Carrera MD) Social History: Caffeine- daily Smoking status: Never smoker Second hand tobacco smoke exposure: No Alcohol intake: never Substance use: never Substance use type: does not use Do You Feel Safe in your Home?: Yes Lack of Transportation: No Lack of Food: Never True Current Housing: I Have Housing Concerned About Future Housing: No Difficulty Paying Gas/Electric Bills: No Difficulty Paying for Meds: No Currently Unemployed: No Education: Associate Degree Difficulty w/ Childcare or Family Care: No Living arrangements: with family Occupation/Education: occupation 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 HEAD: Normocephalic, atraumatic. EYES: Non injected, non icteric ENT: Nares clear, no rhinorrhea or epistaxis. NECK: Supple. CHEST: Speaking in full sentences. No respiratory distress. HEART: Regular rate and rhythm. . ABDOMEN: Gravid uterus with grossly normal fundal height. No rigidity/guarding. Not peritoneal. Back: R CVA tenderness EXTREMITIES: Normal range of motion. No lower extremity edema. SKIN: Warm, dry, no rash. NEURO: No focal deficits. Alert and oriented x3. PSYCH: Normal mood and affect. Course Vital Signs Vital signs: Vital Signs Temperature 97.9 F 10/28/24 07:38 Pulse Rate 97 10/28/24 07:38 Respiratory Rate 20 10/28/24 07:38 Blood Pressure 129/75 10/28/24 07:38 Pulse Oximetry 100 10/28/24 07:38 Oxygen Delivery Room Air 10/28/24 07:38 Temperature 98.8 F 10/28/24 14:32 Pulse Rate 85 10/28/24 14:30 Respiratory Rate 18 10/28/24 12:22 Blood Pressure 107/57 L 10/28/24 14:30 Pulse Oximetry 97 10/28/24 14:26 Oxygen Delivery Room Air 10/28/24 07:38 MDM - Syncope MDM Narrative Medical decision making narrative: This is a 29 year old G 1 P 0 female who is 20 w/3d by both stated LMP 06/07/24 and SHIKHA 03/14/25 who comes to the emergency department with N/V/D . In the emergency department she is afebrile and hemodynamically stable with vital signs within limits. Will obtain basic labs, and viral panel. She already received IV fluids NS and Zofran after reportedly being orthostatic on initial attempt to check. Will administer IV fluids with dextrose as well as pyridoxine. Acetaminophen also ordered. Patient has a leukocytosis 16. Normal renal function. Potassium and magnesium normal. Urinalysis with bacteriuria and some other possible markers of infection. Given that there were moderate squamous cells, it did not on reflexed to culture however this was ordered as per ACOG recommendations and they did call the lab to confirm that they would process this. The only previous urine culture did not show any growth. Given symptoms and right CVA tenderness, I am concerned about pyelonephritis. Given this, 1 g ceftriaxone ordered. Patient lists an allergy to amoxicillin her low cross-reactivity with the 3rd generation cephalosporins. YEARS Algorithm : Yes Hemoptysis: No PE is most likely diagnosis: No Clinical signs of DVT: No D-dimer >1000ng/mL: Yes Result: PE NOT Excluded. CTA PE study recommended. I did perform share decision making with the patient we discussed that either preceding or deferring CT imaging at this time are completely reasonable. 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 Given this as well as the fact that there are other more likely etiologies for her symptoms, she has elected to defer proceeding with CT imaging at this time which is appropriate. Discussed risks/benefits. POCUS performed which demonstrates 2nd trimester fetus with FHR 148bpm and good activity with grossly normal appearing volume of amniotic fluid. Discussed patient with ObGyn manager division for Dr Kasia Hand. Accepted, requesting L&D/OB floor if possible. Charge nurse/housekeeper hospital informed. Differential Diagnosis Differential diagnosis: Likely syncope due to orthostatic hypotension ((near)), vasovagal syncope ((near)), complete atrioventricular block, pulmonary embolism, dehydration and other (n/v during ; hyperemesis gravidarum; gastroenteritis/enteritis; UTI/pyelo; acute viral syndrome) Lab Data Attestation: I reviewed the patient's lab results. 10/28/24 07:54 10/28/24 07:54 Labs: Lab Results 10/28/24 10/28/24 10/28/24 Range/Units 07:54 08:54 10:20 WBC 16.6 H (4.5-10.0) K/mm3 RBC 4.43 (4.2-5.4) M/mm3 Hgb 13.6 (12.0-15.0) g/dL Hct 40.5 (37.0-47.0) % MCV 91.4 (80-100) fl MCH 30.7 (26-34) pg MCHC 33.6 (32-36) g/dl RDW 12.9 (11.5-14.5) % Plt Count 307 (150-375) k/mm3 MPV 9.2 (7.4-10.4) fl Immature Gran % (Auto) 0.5 (0-0.5) % Neut % (Auto) 92.2 H (45.5-73.1) % Lymph % (Auto) 5.3 L (18.3-44.2) % [place] % (Auto) 1.7 L (2.6-8.5) % Eos % (Auto) 0.1 (0-4.4) % Baso % (Auto) 0.2 (0.2-1.2) % Lymph # (Auto) 0.88 L (0.9-3.2) K/mm3 [place] # (Auto) 0.3 (0.1-0.6) K/mm3 Eos # (Auto) 0.0 (0-0.3) K/mm3 Baso # (Auto) 0.0 (0.0-0.1) K/mm3 Abs Immat Gran (auto) 0.09 H (0.00-0.031) K/mm3 Absolute Neuts (auto) 15.3 H (1.3-6.7) K/mm3 Absolute Nucleated RBC 0.000 (0.0-0.012) K/mm3 Nucleated RBC % 0.0 (0.0-0.2) % D-Dimer 1.64 H (<0.48) ug/mL Sodium 134 L (137-145) mmol/L Potassium 3.9 (3.4-5.0) mmol/L Chloride 108 H (98-107) mmol/L Carbon Dioxide 18 L (22-30) mmol/L Anion Gap 8 (4-12) mmol/L BUN 9 (7-17) mg/dL Creatinine 0.53 L (0.7-1.0) mg/dL Estim Creat Clear Calc 118 ml/min Estimated GFR > 60 (59 - ) Glucose 101 (65-110) mg/dL Calcium 8.6 (8.4-10.2) mg/dL Magnesium 1.7 (1.6-2.3) mg/dL Total Bilirubin 0.5 (0.2-1.3) mg/dL AST 28 (14-36) U/L ALT 20 (6-35) U/L Alkaline Phosphatase 81 (38-126) U/L Total Protein 7.0 (6.3-8.2) g/dL Albumin 4.0 (3.5-5.1) g/dL Urine Color Yellow (Yellow) Urine Appearance Clear (Clear) Urine pH 7.0 (5.0-9.0) Ur Specific [place] 1.026 (1.001-1.035) Urine Protein 1+ H (Negative) mg/dL Urine Glucose (UA) Negative (Negative) mg/dL Urine Ketones 4+ H (Negative) mg/dL Ur Blood (Man) Negative (Negative) Urine Nitrate Negative (Negative) Urine Bilirubin Negative (Negative) Urine Urobilinogen 0.2 (<2.0) mg/dL Add Ur Microanalysis Reviewed Leukocyte Esterase Rfl 1+ H (Negative) JERO/UL Urine RBC 0-2 (0-2) /hpf Urine WBC 6-10 H (0-3) /hpf Ur Squamous Epith Cells Moderate (Few) /hpf Urine Bacteria 4+ H /hpf Urine Casts 0-2 Influenza A (RT-PCR) Negative (Negative) Influenza B (RT-PCR) Negative (Negative) RSV (RT-PCR) Negative (Negative) SARS-CoV-2 RNA (RT-PCR) Negative (Negative) ECG Data EKG #1: Attestation: I personally reviewed and interpreted this ECG as follows: ECG completion date: 10/28/24 ECG completion time: 08:04 Interpretation: Normal sinus rhythm at a rate of 87 beats per minute. GA interval 156. QRS 81. QT/QTC 376/421 (appropriate). Good R-wave progression across the precordial leads. T-wave inversion in lead 3 but otherwise upright in normal in contiguous inferior leads 2 and AVF. Normal axis. No needle like daggers that would be concerning for HOCM. Discharge Plan Discharge Clinical Impression: Leukocytosis, Near syncope, Nausea and vomiting during prior to 22 weeks gestation, Bacteriuria during , Pyelonephritis affecting in second trimester, Abdominal pain during Patient Disposition: Still a Patient Condition: Stable
[2024-10-28] MEDS: PYRIDOXINE HCL 100 MG/ML VIAL (*SPC) 50 MG IV PUSH (10:38)
[2024-10-28] MEDS: ACETAMINOPHEN 500 MG TABLET 1000 MG PO (10:38)
[2024-10-28] MEDS: DEXTROSE 5%/0.9% SOD CHL 500 ML 125 ML IV CONT (10:39)
[2024-10-28 10:40] LABS: Magnesium 1.7 mg/dL (1.6-2.3)
[2024-10-28 10:51] LABS: D Dimer 1.64 ug/mL (<0.48)
[2024-10-28 11:06] LABS: Influenza A QL RT-PCR Negative (Negative); Influenza B QL RT-PCR Negative (Negative); RSV RNA, RT-PCR Negative (Negative); SARS-CoV-2 RNA PCR Negative (Negative)
--- NOTE | 2024-10-28 12:33 | PC.NURSE ---
Patient being transferred to OB 111 by [facility] at this time
[2024-10-28] MEDS: LACTATED RINGERS 1,000 ML 125 ML IV CONT (13:01)
--- NOTE | 2024-10-28 13:06 | OBADM ---
This patient, Deya Wilkerson, admitted to the OB room OB Post 111 for observation. Patient/family oriented to hospital policies and general routines including ID bracelet, bed and alarms, visiting hours, pain management, procedures, bathroom and other care routines, personal items, smoking policy, room service/diet, and visiting hours. Patient/Family are encouraged to report perceived risks to care and to ask questions if they do not understand what they are told or what they should do.
[2024-10-28] MEDS: LACTATED RINGERS 1,000 ML 999 ML IV CONT (13:32)
[2024-10-28] MEDS: DEXTROSE 5%/LACTATED RINGERS 1,000 ML 999 ML IV CONT (14:27)
--- NOTE | 2024-10-29 09:25 | PM.OBTRLD ---
OB - Triage/Final Diagnosis Visit Information Reason for evaluation: other ( Nausea and vomiting/urinary tract infection) Comments/Additional reasons for admission: I have assessed the risk for this patient, Deya Wilkerson, and determined that she would benefit from observation care. Evaluation Laboratory results: Laboratory Tests 10/28/24 10/28/24 10/28/24 07:54 08:54 10:20 WBC 16.6 H RBC 4.43 Hgb 13.6 Hct 40.5 MCV 91.4 MCH 30.7 MCHC 33.6 RDW 12.9 Plt Count 307 MPV 9.2 Immature Gran % (Auto) 0.5 Neut % (Auto) 92.2 H Lymph % (Auto) 5.3 L [place] % (Auto) 1.7 L Eos % (Auto) 0.1 Baso % (Auto) 0.2 Lymph # (Auto) 0.88 L [place] # (Auto) 0.3 Eos # (Auto) 0.0 Baso # (Auto) 0.0 Abs Immat Gran (auto) 0.09 H Absolute Neuts (auto) 15.3 H Absolute Nucleated RBC 0.000 Nucleated RBC % 0.0 D-Dimer 1.64 H Sodium 134 L Potassium 3.9 Chloride 108 H Carbon Dioxide 18 L Anion Gap 8 BUN 9 Creatinine 0.53 L Estim Creat Clear Calc 118 Estimated GFR > 60 Glucose 101 Calcium 8.6 Magnesium 1.7 Total Bilirubin 0.5 AST 28 ALT 20 Alkaline Phosphatase 81 Total Protein 7.0 Albumin 4.0 Urine Color Yellow Urine Appearance Clear Urine pH 7.0 Ur Specific [place] 1.026 Urine Protein 1+ H Urine Glucose (UA) Negative Urine Ketones 4+ H Ur Blood (Man) Negative Urine Nitrate Negative Urine Bilirubin Negative Urine Urobilinogen 0.2 Add Ur Microanalysis Reviewed Leukocyte Esterase Rfl 1+ H Urine RBC 0-2 Urine WBC 6-10 H Ur Squamous Epith Cells Moderate Urine Bacteria 4+ H Urine Casts 0-2 Influenza A (RT-PCR) Negative Influenza B (RT-PCR) Negative RSV (RT-PCR) Negative SARS-CoV-2 RNA (RT-PCR) Negative Vital signs: Vital Signs - 24 hr 10/28/24 09:34 10/28/24 09:45 10/28/24 09:46 Temperature Pulse Rate 84 83 84 Respiratory Rate 13 13 16 Blood Pressure 104/60 Pulse Oximetry 99 97 97 10/28/24 10:04 05/19/25 10:35 10/28/24 10:45 Temperature Pulse Rate 110 H 96 78 Respiratory Rate 17 19 19 Blood Pressure Pulse Oximetry 100 100 100 10/28/24 10:46 10/28/24 10:47 10/28/24 12:12 Temperature Pulse Rate 84 85 96 Respiratory Rate 20 17 15 Blood Pressure 102/62 Pulse Oximetry 100 100 100 10/28/24 12:15 10/28/24 12:16 10/28/24 12:22 Temperature Pulse Rate 95 98 98 Respiratory Rate 19 23 H 18 Blood Pressure 103/65 103/65 Pulse Oximetry 99 99 99 10/28/24 12:30 10/28/24 12:31 10/28/24 12:41 Temperature Pulse Rate Respiratory Rate Blood Pressure 112/77 Pulse Oximetry 100 100 82 L 10/28/24 12:45 10/28/24 12:46 10/28/24 12:51 Temperature Pulse Rate 80 Respiratory Rate Blood Pressure 111/55 L Pulse Oximetry 98 98 10/28/24 12:56 10/28/24 13:00 10/28/24 13:01 Temperature Pulse Rate 85 Respiratory Rate Blood Pressure 114/60 Pulse Oximetry 99 99 10/28/24 13:06 10/28/24 14:26 10/28/24 14:27 Temperature Pulse Rate 83 Respiratory Rate Blood Pressure 109/57 L Pulse Oximetry 98 97 10/28/24 14:30 10/28/24 14:32 Temperature 98.8 F Pulse Rate 85 Respiratory Rate Blood Pressure 107/57 L Pulse Oximetry
== END 2024-10-28 15:49 | disposition home or self-care (01) ==
LOC: ANHED 09:22 → ANHOBPP 12:05
PROVIDERS: Admitting Provider Obstetrics & Gynecology; Emergency Provider Student in an Organized Health Care Education/Training Program; PCP Family Medicine; Visit Provider Obstetrics & Gynecology
DX: O21.0 Mild hyperemesis gravidarum (principal); O23.42 Unspecified infection of urinary tract in pregnancy, second trimester; N39.0 Urinary tract infection, site not specified; O26.892 Other specified pregnancy related conditions, second trimester; R55 Syncope and collapse; Z3A.20 20 weeks gestation of pregnancy; Z20.822 Contact with and (suspected) exposure to COVID-19
CPT/HCPCS: 36415; 80053; 81001; 83735; 85025; 85380; 87086; 87637; 93005; 96361; 96365; 96375; 99285; A9270; G0378; G0379; J0696; J2405; J3415; J7030; J7042; J7120; J7121

== ENCOUNTER 2024-12-01 08:44 | Emergency (ER) | payer OTHER, SELFPAY ==
--- NOTE | 2024-12-01 08:52 | ED_ITS ---
HPI - URI/Sore Throat General Chief Complaint: Upper Respiratory Infection Stated Complaint: sore throat/cough/chest pain Time Seen by Provider: 12/01/24 09:15 Source: patient, RN notes reviewed and old records reviewed Mode of arrival: ambulatory Limitations: no limitations History of Present Illness HPI Narrative: 29-year-old female presents to the [facility] with 1 week history of sore throat, productive cough, chest congestion and tightness with coughing. Denies any fevers. Reports an exposure to croup. States over the last 2-3 days this has gotten much worse. No treatment prior to arrival reports that she is 25 weeks and did not believe she can take any medication. Onset (ago): week(s) (1) Treatments prior to arrival: none Related Data Home Medications ?Medication ?Instructions ?Recorded ?Confirmed ?Last Taken ?Type docosahexaenoic acid 200 mg mg PO 08/01/24 11/22/24 Unknown History capsule ( DHA) polyethylene glycol 3350 17 17 g PO DAILY 08/30/24 11/22/24 Unknown History gram/dose oral powder (Miralax) aspirin 81 mg tablet,delayed 81 mg PO DAILY 09/24/24 11/22/24 Unknown History release Allergies Allergy/AdvReac Type Severity Reaction Status Date / Time Penicillins Allergy Mild Rash Verified 12/01/24 08:56 Sulfa (Sulfonamide Allergy Mild Rash Verified 12/01/24 08:56 Antibiotics) cephalexin (From Keflex) AdvReac Mild Gastrointestinal Verified 12/01/24 08:56 Upset Review of Systems Review of Systems: All systems reviewed & are unremarkable except as noted in HPI and below Constitutional: Constitutional: Reports no additional constitutional complaints ENT: Reports as per HPI and Reports sore throat Cardiovascular: Cardiovascular: Reports no additional cardiovascular complaints, Denies chest pain and Denies dyspnea Respiratory: Respiratory: Reports chest congestion, Reports cough and Denies dyspnea Musculoskeletal: Musculoskeletal: Reports no additional musculoskeletal complaints Integumentary/Breasts: Skin/Breast: Reports system reviewed and no additional complaints, except as docu PMFSH Past Medical History Medical History Costochondritis Pyelonephritis Unspecified asthma, uncomplicated Depression GERD (gastroesophageal reflux disease) Surgical History Surgical History History of hysteroscopy due to previous IUD malfunction/break Hx laparoscopic cholecystectomy 12.8.20 Laparoscopic Cholecystectomy, Laparoscopic excision of peritoneal lesion H/O wisdom tooth extraction Family History Family History Father Family history of thyroid disease Hypertension Grandparent Acute myocardial infarction, Onset Age: 75 Other Family history of cardiovascular disease Family history of malignant melanoma Family history of malignant neoplasm of breast Family history of malignant neoplasm of skin Family history of mental disorder Family history of restless legs syndrome Family history of suicide Social History Social History Social History: Caffeine- daily Smoking status: Never smoker Second hand tobacco smoke exposure: No Alcohol intake: never Substance use: never Substance use type: does not use Do You Feel Safe in your Home?: Yes Lack of Transportation: No Lack of Food: Never True Current Housing: I Have Housing Concerned About Future Housing: No Difficulty Paying Gas/Electric Bills: No Difficulty Paying for Meds: No Currently Unemployed: No Education: Associate Degree Difficulty w/ Childcare or Family Care: No Living arrangements: with family 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 There is no relevant family history pertinent to the patient complaint. Exam Const: General: cooperative, healthy appearing, comfortable, no acute distress, well developed, alert and well nourished Nutritional Appearance: well nourished Orientation/consciousness: patient oriented x3 Limitations: no limitations HENMT: Head: normal to inspection Ears: hearing grossly normal bilaterally, external ears normal, TM's normal bilaterally, EAC's normal, mastoids normal and no periauricular adenopathy Face and sinus: normal facial exam and face symmetric Mouth: Yes Normal oral and palatal mucosa present, Yes lip normal, Yes tongue normal and Yes moist mucous membranes Throat: posterior oropharynx normal, tonsils normal, uvula midline, postnasal drainage and no uvular edema Eyes: General: appearance normal, both eyes and all related structures Alignment and Position: alignment normal Neck: Neck: normal visual inspection, full ROM, no lymphadenopathy and no meningeal signs Chest: Chest palpation & inspection: normal inspection of the chest Resp: Effort & Inspection: normal respiratory effort and able to speak in complete sentences Auscultation: no crackles, no rales, no rhonchi and wheezes expiratory wheezes, right lower and right upper Cardio: Rate: regular rate Skin: General skin exam: normal color and no rashes or lesions noted Neuro: General: patient oriented x3, gait normal, moves all extremities and no meningeal signs Cognition (Neuro): normal cognition Speech: normal speech Gait exam (Neuro): Normal gait present Extrem: General: normal to inspection, full ROM, capillary refill normal and normal gait Psych: Appearance: grossly normal and well kempt Mental Status: mental status grossly normal Speech and movement: Normal speech and movement present and Clear speech present Affect: normal affect Attitude: cooperative Course Course Level of Care: Express Care Visit Vital Signs Vital signs: Vital Signs Temperature 97.5 F L 12/01/24 08:56 Pulse Rate 90 12/01/24 08:56 Respiratory Rate 18 12/01/24 08:56 Blood Pressure 103/53 L 12/01/24 08:56 Pulse Oximetry 99 12/01/24 08:56 Oxygen Delivery Room Air 12/01/24 08:56 Temperature 97.5 F L 12/01/24 08:56 Pulse Rate 90 12/01/24 08:56 Respiratory Rate 18 12/01/24 08:56 Blood Pressure 103/53 L 12/01/24 08:56 Pulse Oximetry 99 12/01/24 08:56 Oxygen Delivery Room Air 12/01/24 08:56 Reviewed MDM - URI/Sore Throat MDM Narrative Medical decision making narrative: Patient sitting in exam room. Patient is nontoxic, vitals are stable. Patient presents with 1 week history of cough, sore throat. Strep test negative, will culture. COVID test negative Patient 25 weeks , no concerns for at this time. Patient's exam most consistent with bronchitis, will cover with antibiotic and albuterol Patient appropriate for outpatient treatment with close follow-up Discharge instructions reviewed with patient, as well as provided in writing per nursing staff. The instructions also include specific and strict return/GO TO THE ER as well as f/u information. All questions have been answered, and the patient deny any further questions with discharge and discharge plan. Some parts of this dictation were generated by voice recognition software and may contain typographical and/or grammatical inaccuracies. Differential Diagnosis Differential diagnosis: Likely upper respiratory infection, otitis media, sinusitis, viral infection, bronchitis, influenza and pharyngitis Lab Data Labs: Lab Results 12/01/24 12/01/24 Range/Units 09:17 09:36 POC SARS CoV-2 Ag Negative (Negative) POC Grp A Strep Screen Negative (Negative) Reviewed Critical Care Time Critical Care Time Critical Care Time: No Discharge Plan Discharge Clinical Impression: Acute bronchitis Qualifiers: Bronchitis organism: unspecified organism Qualified Code(s): J20.9 - Acute bronchitis, unspecified Patient Disposition: Home Condition: Stable Instructions: Antibiotic Form, Acute Bronchitis (ED) Additional Instructions: Cold and Flu Symptoms --Tylenol (regular or extra Strength) Fever (call if over 101?)--Tylenol (regular or extra Strength) Nasal Drainage/Head Congestion--Chlor-Trimeton, Sudafed, Tavist,Tylenol Sinus Cough--Robitussin, Delsym, Sore Throat--Chloraseptic, Cepacol lozenges Allergy Symptoms--Bendryl, Zyrtec, Zyrtec D, Claritin, Claritin D Nausea--Emetrol, Vitamin B6 Tablets, Blanca, Blanca Tea, Preggie Pops, B- Suckers Constipation--Milk of Magnesia, Metamucil, Fiberall, Konsyl, Colace (Docusate Sodium Diarrhea--Imodium, Kaopectate, Follow BRAT diet: bananas, rice, applesauce, tea/toast Heartburn--Maalox, Mylanta, TUMS, Prilosec OTC, Zantac, Tagment, Prevacid, Pepcid Hemorrhoids--Tucks Pads, Anusol, Preparation H, warm sitz baths Your rapid strep swab was negative today at [facility]. A throat culture will be sent to the laboratory for further testing. If the test is positive, you will receive a phone call within 48 hours and an appropriate antibiotic will be initiated at that time. Your rapid COVID test were negative It is very important to treat your symptoms. Drink plenty of water, Gatorade, Pedialyte, ice pops or Jell-O. -take Tylenol per package instructions fever or pain. -Antihistamine medication such as Zyrtec/Claritin during the day can help improve symptoms. -doing daily nasal irrigations can help relieve pressure your sinuses. Things like a Neti pot -Eat and drink things that are easy to swallow, like tea or soup, or popsicles. -Oral rinses such as: Salt water gargles and/or may use topical anesthetic (eg. Chloraseptic spray) or lozenges to relieve dryness or throat pain). -Frequent hand washing or hand utility bill complaints investigator is one of the best ways to prevent spread of infection. -Using a vaporizer or humidifier at night will also help thin secretions and help with coughing up phlegm. -Follow up with primary care provider in 7-10 days if condition is not improving - For new or worsening symptoms go directly to the nearest ER Patient Language: Korean Prescriptions: New azithromycin 250 mg tablet See Rx Instructions .ROUTE .COMPLEX Qty: 6 0RF Rx Instructions: take 500 mg today (day 1), then 250 mg for 4 days (days 2-5) albuterol sulfate 90 mcg/actuation HFA aerosol inhaler 2 puff inhalation QID PRN (Reason: shortness of breath or wheezing) Qty: 6.7 0RF (DME) Aerochamber MV Spacer See Rx Instructions .Route Qty: 1 0RF Rx Instructions: As directed No Action aspirin 81 mg tablet,delayed release (DR/EC) 81 mg PO DAILY DHA 200 mg capsule PO polyethylene glycol 3350 [Miralax] 17 gram/dose powder 17 g PO DAILY escitalopram oxalate 20 mg tablet See Rx Instructions .ROUTE .COMPLEX Qty: 90 0RF Dose Instruction: TAKE 1 TABLET BY MOUTH EVERY DAY Rx Instructions: TAKE 1 TABLET BY MOUTH EVERY DAY ondansetron 4 mg tablet,disintegrating 4 mg PO Q6H PRN (Reason: nausea and vomiting) Qty: 20 2RF Follow-up/Referrals: Kasia Hand MD [Physician] - 1 Week (express care follow up ) Alfreda Carmona MD [Primary Care Provider] - Time of Disposition: 09:38
[2024-12-01 08:56] VITALS: BP 103/53; PULSE 90; RESP 18; TEMP 36.4; O2SAT 99
[2024-12-01 09:19] LABS: EDSTREPNEGPOS1 Negative (Negative)
[2024-12-01 09:38] LABS: EDCOVIDSCREEN Negative (Negative)
--- NOTE | 2024-12-03 14:20 | PC.NURSE ---
FINAL THROAT CULTURE NO GROUP A STREPTOCOCCUS ISOLATED
== END 2024-12-01 09:43 | disposition home or self-care (01) ==
PROVIDERS: Emergency Provider Nurse Practitioner; PCP Family Medicine
DX: O99.512 Diseases of the respiratory system complicating pregnancy, second trimester (principal); J20.9 Acute bronchitis, unspecified; Z3A.25 25 weeks gestation of pregnancy; O99.612 Diseases of the digestive system complicating pregnancy, second trimester; K21.9 Gastro-esophageal reflux disease without esophagitis; J45.909 Unspecified asthma, uncomplicated; Z20.822 Contact with and (suspected) exposure to COVID-19
CPT/HCPCS: 87081; 87426; 87880; 99213; G0463

== ENCOUNTER 2024-12-16 07:08 | Outpatient (RCR) | payer OTHER, SELFPAY ==
[2024-12-16 07:24] LABS: Hematocrit 37.3 % (37.0-47.0); Hemoglobin 12.3 g/dL (12.0-15.0); Immature Granulocyte Percent A 0.7 % (0-0.5); Lymphocytes Absolute Auto 3.13 K/mm3 (0.9-3.2); Mean Corpuscular HGB Conc 33.0 g/dl (32-36); Mean Corpuscular Hemoglobin 30.4 pg (26-34); Mean Corpuscular Volume 92.1 fl (80-100); Nucleated Red Blood Cells Absolute Auto 0.000 K/mm3 (0.0-0.012); Nucleated Red Blood Cells Perc 0.0 % (0.0-0.2); Platelet Count Result 230 k/mm3 (150-375); Red Blood Count 4.05 M/mm3 (4.2-5.4); White Blood Count 10.3 K/mm3 (4.5-10.0)
[2024-12-16 07:39] LABS: Glucose Fasting Gestational 75 mg/dL (>/=95)
[2024-12-16 08:18] LABS: HIV 1/2 Ab P24 Ag Result Negative (Negative)
[2024-12-16 09:11] LABS: Syphilis IgG/IgM Antibody Non-Reactive (Nonreactive)
[2024-12-16 09:19] LABS: Glucose 1 Hour Gest 160 mg/dL (>/=180)
[2024-12-16] MEDS: RHO(D) IMMUNE GLOBULIN 300 MCG/2 ML SYRINGE IM (09:25)
[2024-12-16 10:08] LABS: Glucose 2 Hour Gest 147 mg/dL (>/= 155)
[2024-12-16 11:06] LABS: Glucose 3 Hour Gest 107 mg/dL (>/=140)
== END 2025-03-16 23:59 | disposition home or self-care (01) ==
LOC: ANHLAB 07:08
PROVIDERS: PCP Family Medicine; Visit Provider Obstetrics & Gynecology
DX: Z11.4 Encounter for screening for human immunodeficiency virus [HIV] (principal); Z11.3 Encounter for screening for infections with a predominantly sexual mode of transmission; Z29.13 Encounter for prophylactic Rho(D) immune globulin; O36.0130 Maternal care for anti-D [Rh] antibodies, third trimester, not applicable or unspecified; O48.0 Post-term pregnancy; Z3A.40 40 weeks gestation of pregnancy
CPT/HCPCS: 36415; 82951; 82952; 85025; 85461; 86593; 86703; 86850; 86900; 86901; 90384; 96372; G0432; J2790

== ENCOUNTER 2025-01-16 08:53 | Outpatient (CLI) | payer OTHER, SELFPAY ==
[2025-01-16 09:52] LABS: Add Urine Microscopic? NO; Appearance Urine Clear (Clear); Glucose Urine UA Negative (Negative); Leukocyte Esterase Ur Negative LEU/UL (Negative); Nitrate Urine Negative (Negative); Specific Grav Ur 1.004 (1.001-1.035)
== END 2025-01-16 08:54 | disposition home or self-care (01) ==
PROVIDERS: PCP Family Medicine; Visit Provider Obstetrics & Gynecology
DX: R30.0 Dysuria (principal)
CPT/HCPCS: 81003

== ENCOUNTER 2025-02-13 09:46 | Outpatient (CLI) | payer OTHER, SELFPAY ==
--- NOTE | ~2025-02-13 | US_ITS ---
EXAMINATION: US OB follow up DATE: 02/13/2025 10:03 INDICATION: Polyhydramnios during third trimester TECHNIQUE: Real-time ultrasound of the pelvis was performed. The interpreting radiologist was not present for the study. COMPARISON: None. FINDINGS: There is a single living fetus in vertex presentation. The placenta is anterior and not low-lying. Normal cervical length of 5.1 cm. heart rate is 138 beats per minute (bpm). The amniotic fluid index is 22.5 cm, which is normal (5th%-95%: 7.9-24.9 cm at 35 weeks estimated gestational age, 7.7-24.9 cm at 36 weeks estimated gestational age) . The following biometric data were obtained: BPD: 9.0 cm -> 36 weeks 2 days Head circumference: 31.8 cm -> 35 weeks 6 days Abdominal circumference: 30.9 cm -> 34 weeks 6 days Femur length: 7.3 cm -> 37 weeks 4 days These measurements are concordant. Head circumference to abdominal circumference ratio: 1.03 (normal range 0.92-1.08). Estimated weight: 2777 g (+/-) 417 g or 6 lbs. 2 oz. (+/-) 15 oz. IMPRESSION: 1. Single living fetus in vertex presentation with heart rate of 138 bpm. 2. Normal amniotic fluid index of 22.5 cm. 3. Estimated weight is 49th percentile by Hadlock criteria when 03/14/2025 is used as the estimated date of delivery (SHIKHA). Please correlate with clinical information or earlier ultrasounds for most accurate SHIKHA. Reviewed, dictated and finalized at location A. IMPRESSION: 1. Single living fetus in vertex presentation with heart rate of 138 bpm. 2. Normal amniotic fluid index of 22.5 cm. 3. Estimated weight is 49th percentile by Hadlock criteria when 03/14/2025 is used as the estimated date of delivery (SHIKHA). Please correlate with clinica l information or earlier ultrasounds for most accurate SHIKHA.
== END 2025-02-13 09:47 | disposition home or self-care (01) ==
PROVIDERS: PCP Family Medicine; Visit Provider Obstetrics & Gynecology
DX: O40.9XX0 Polyhydramnios, unspecified trimester, not applicable or unspecified (principal); Z3A.00 Weeks of gestation of pregnancy not specified
CPT/HCPCS: 76816

== ENCOUNTER 2025-03-11 11:36 | Outpatient (RCR) | payer OTHER, SELFPAY ==
--- NOTE | ~2025-03-11 | US_ITS ---
EXAMINATION: US OB BPP wo non-stress DATE: 03/11/2025 12:43 INDICATION: Dizziness TECHNIQUE: Real-time pelvic ultrasound was performed. The interpreting radiologist was not present for the study. COMPARISON: 02/13/2025 FINDINGS: There is a single living fetus in vertex presentation. The placenta is anterior and not low-lying. heart rate is 138 beats per minute (bpm). Amniotic fluid deepest vertical pocket measurement of 10.0 cm which is above the normal range. Biophysical profile performed by the technologist: breathing (30 sec sustained breathing in 30 minutes): 2 out of 2 movement (3 gross body movements in 30 minutes): 2 out of 2 tone (one episode of bwdggqo-btycodlcl-nzekcjp limb movement): 2 out of 2 Amniotic fluid pocket (2 cm): 2 out of 2 Total score: 8 out of 8 IMPRESSION: 1. Single living fetus in vertex presentation with heart rate of 138 bpm. 2. Biophysical profile 8 out of 8. 3. Amniotic fluid deepest vertical pocket measurement of 10.0 cm which is above the normal range. Recent amniotic fluid index from 02/13/2025 of 22.5 cm which was at the upper range of normal. Reviewed, dictated and finalized at location A. IMPRESSION: 1. Single living fetus in vertex presentation with heart rate of 138 bpm. 2. Biophysical profile 8 out of 8. 3. Amniotic fluid deepest vertical pocket measurement of 10.0 cm which is above the normal range. Recent amniotic fluid index from 02/13/2025 of 22.5 cm which w as at the upper range of normal.
[2025-03-11 12:54] VITALS: BP 123/71; PULSE 83
== END 2025-06-09 23:59 | disposition home or self-care (01) ==
LOC: ANHOBOP 11:36
PROVIDERS: PCP Family Medicine; Visit Provider Obstetrics & Gynecology
DX: O26.893 Other specified pregnancy related conditions, third trimester (principal); R42 Dizziness and giddiness; Z3A.39 39 weeks gestation of pregnancy
CPT/HCPCS: 59025; 76819

== ENCOUNTER 2025-03-13 15:52 | Inpatient (IN) | payer OTHER, SELFPAY ==
[2025-03-13] VITALS (17 sets, daily range): BP systolic 104–132; BP diastolic 52–82; PULSE 70–91; RESP 18; TEMP 36.6–37.1; BMI 40.0
[2025-03-13 17:04] LABS: Hematocrit 39.1 % (37.0-47.0); Hemoglobin 13.3 g/dL (12.0-15.0); Immature Granulocyte Percent A 0.8 % (0-0.5); Lymphocytes Absolute Auto 3.70 K/mm3 (0.9-3.2); Mean Corpuscular HGB Conc 34.0 g/dl (32-36); Mean Corpuscular Hemoglobin 30.2 pg (26-34); Mean Corpuscular Volume 88.7 fl (80-100); Nucleated Red Blood Cells Absolute Auto 0.000 K/mm3 (0.0-0.012); Nucleated Red Blood Cells Perc 0.0 % (0.0-0.2); Platelet Count Result 241 k/mm3 (150-375); Red Blood Count 4.41 M/mm3 (4.2-5.4); White Blood Count 11.5 K/mm3 (4.5-10.0)
[2025-03-13] MEDS: DINOPROSTONE 10 MG VAG INSERT VAGINAL (17:05)
--- NOTE | 2025-03-13 17:28 | LDADM ---
This patient, Deya Wilkerson, was admitted to Labor/Delivery/Recovery 105 on 03/13/25 at 15:52. Plans for labor, pain management and were discussed with patient. Patient/family oriented to hospital policies and general routines including ID bracelet, bed and alarms, visiting hours, pain management, procedures, bathroom and other care routines, personal items, smoking policy, room service/diet and guest tray routines, security routines, and visiting hours. Patient/Family are encouraged to report perceived risks to care and to ask questions if they do not understand what they are told or what they should do. See OBIX for further documentation.
--- NOTE | 2025-03-13 17:31 | WPDANESEPP ---
Anes - Eval Pre Procedure Procedure: Labor epidural Date/Time: 03/13/25 17:31 Surgeon: Yazan Preop Diagnosis: Abdominal pain with contractions Pre Op Diagnosis: IOL Patient Data Age: 29 Gender: F Height: Weight: Last Vital Signs Temp 98.7 F 03/13/25 16:58 Pulse 85 03/13/25 17:30 Resp 18 03/13/25 16:58 BP 109/57 L 03/13/25 17:30 Allergies Allergy/AdvReac Type Severity Reaction Status Date / Time Penicillins Allergy Mild Hives Verified 03/13/25 17:17 Sulfa (Sulfonamide Allergy Mild Hives Verified 03/13/25 17:17 Antibiotics) cephalexin (From Keflex) AdvReac Mild Gastrointestinal Verified 03/13/25 17:17 Upset Home Medications ?Medication ?Instructions ?Recorded ?Confirmed ?Type docosahexaenoic acid 200 mg 200 mg PO DAILY 08/01/24 03/13/25 History capsule ( DHA) polyethylene glycol 3350 17 17 g PO DAILY 08/30/24 03/06/25 History gram/dose oral powder (Miralax) aspirin 81 mg tablet,delayed 81 mg PO DAILY 09/24/24 03/13/25 History release ondansetron 4 mg disintegrating 4 mg PO Q6H PRN nausea and 10/28/24 03/06/25 Rx tablet vomiting #20 tabs escitalopram oxalate 20 mg tablet See Rx Instructions .Route 01/06/25 03/13/25 Rx .COMPLEX #90 tabs RSV vac, preF A and preF B(PF) 120 0.5 ml IM ONCE #1 ea 02/20/25 03/13/25 Rx mcg/0.5 mL IM solution (Abrysvo (PF)) Laboratory Tests 03/13/25 16:41 WBC 11.5 H K/mm3 (4.5-10.0) RBC 4.41 M/mm3 (4.2-5.4) Hgb 13.3 g/dL (12.0-15.0) Hct 39.1 % (37.0-47.0) MCV 88.7 fl (80-100) MCH 30.2 pg (26-34) MCHC 34.0 g/dl (32-36) RDW 13.5 % (11.5-14.5) Plt Count 241 k/mm3 (150-375) MPV 10.2 fl (7.4-10.4) Immature Gran % (Auto) 0.8 H % (0-0.5) Neut % (Auto) 58.3 % (45.5-73.1) Lymph % (Auto) 32.1 % (18.3-44.2) Summit % (Auto) 6.9 % (2.6-8.5) Eos % (Auto) 1.6 % (0-4.4) Baso % (Auto) 0.3 % (0.2-1.2) Lymph # (Auto) 3.70 H K/mm3 (0.9-3.2) Summit # (Auto) 0.8 H K/mm3 (0.1-0.6) Eos # (Auto) 0.2 K/mm3 (0-0.3) Baso # (Auto) 0.0 K/mm3 (0.0-0.1) Abs Immat Gran (auto) 0.09 H K/mm3 (0.00-0.031) Absolute Neuts (auto) 6.7 K/mm3 (1.3-6.7) Absolute Nucleated RBC 0.000 K/mm3 (0.0-0.012) Nucleated RBC % 0.0 % (0.0-0.2) Blood Type B Negative Antibody Screen Negative : gestational age HCG: positive Patient hx anesthesia problems: none Family hx anesthesia problems: none Results Review: All pre-operative results and documents have been reviewed as part of the pre-operative evaluation. [facility] Past Medical History Medical History Asthma Chronic anxiety Chronic GERD Polyhydramnios Costochondritis Pyelonephritis Unspecified asthma, uncomplicated Depression GERD (gastroesophageal reflux disease) Surgical History Surgical History History of hysteroscopy due to previous IUD malfunction/break Hx laparoscopic cholecystectomy 12..20 Laparoscopic Cholecystectomy, Laparoscopic excision of peritoneal lesion H/O wisdom tooth extraction Family History Family History Father Family history of thyroid disease Hypertension Grandparent Acute myocardial infarction, Onset Age: 75 Cervical cancer Social History Social History Social History: Caffeine- daily Smoking status: Never smoker Second hand tobacco smoke exposure: No Alcohol intake: never Substance use: never Substance use type: does not use Do You Feel Safe in your Home?: Yes Lack of Transportation: No Lack of Food: Never True Current Housing: I Have Housing Concerned About Future Housing: No Difficulty Paying Gas/Electric Bills: No Difficulty Paying for Meds: No Currently Unemployed: No Education: Associate Degree Difficulty w/ Childcare or Family Care: No Living arrangements: with family 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
[2025-03-13 17:56] LABS: Syphilis IgG/IgM Antibody Non-Reactive (Nonreactive)
[2025-03-13] MEDS: LACTATED RINGERS 1,000 ML 125 ML IV CONT ×2 (21:12→22:44)
[2025-03-13] MEDS: fentaNYL CITRATE INJ (*CRX) 100 MCG/2 ML VIAL 50 MCG IV PUSH (21:55)
[2025-03-14] VITALS (261 sets, daily range): BP systolic 77–154; BP diastolic 49–97; PULSE 64–255; RESP 12–21; TEMP 36.2–38.7; O2SAT 93–100
[2025-03-14] MEDS: fentaNYL CITRATE INJ (*CRX) 100 MCG/2 ML VIAL 50 MCG IV PUSH (01:29)
[2025-03-14] MEDS: LACTATED RINGERS 1,000 ML 125 ML IV CONT ×3 (05:04→14:57)
[2025-03-14] MEDS: fentaNYL CITRATE INJ (*CRX) 100 MCG/2 ML VIAL IV PUSH (05:05)
--- NOTE | 2025-03-14 07:35 | P.HP_ITS ---
H&P: HPI History of Present Illness Date/Time: 03/14/25 07:25 Chief Complaint: induction of labor Narrative: Deya is a 29yo @ 39.6wks who presented overnight for elective IOL. She has had regular care. She reports good movement. No vb or lof. Now s/p epidural and comfortable Her is complicated by: - anxiety; lexapro - obesity; early glucola, ASA 81mg qhs - RH negative s/p rhogam Review of Systems Constitutional: Constitutional: Denies chills, Denies fever(s) and Denies h eadache(s) Eyes: Eyes: Denies change in vision ENT: Denies headache(s) Cardiovascular: Cardiovascular: Denies chest pain and Denies dyspnea Respiratory: Respiratory: Denies dyspnea Genitourinary: Genitourinary: Denies abnormal vaginal bleeding and Denies vaginal discharge Neurologic: Denies headache(s) Psychiatric: Psychiatric: Denies anxiety and Denies depression [facility] Past Medical History Medical History Asthma Chronic anxiety Chronic GERD Polyhydramnios Costochondritis Pyelonephritis Unspecified asthma, uncomplicated Depression GERD (gastroesophageal reflux disease) Surgical History Surgical History History of hysteroscopy due to previous IUD malfunction/break Hx laparoscopic cholecystectomy 12.8.20 Laparoscopic Cholecystectomy, Laparoscopic excision of peritoneal lesion H/O wisdom tooth extraction Family History Family History Father Family history of thyroid disease Hypertension Grandparent Acute myocardial infarction, Onset Age: 75 Cervical cancer Social History Social History Social History: Caffeine- daily Smoking status: Former smoker Tobacco type: e-cigarettes/vaping Second hand tobacco smoke exposure: Yes ( still vapes- outside only) Additional smoking assessment comments: Vaped for 2 years Alcohol intake: never Substance use: never Substance use type: does not use Do You Feel Safe in your Home?: Yes Lack of Transportation: No Lack of Food: Never True Current Housing: I Have Housing Concerned About Future Housing: No Difficulty Paying Gas/Electric Bills: No Difficulty Paying for Meds: No Currently Unemployed: No Education: Associate Degree Difficulty w/ Childcare or Family Care: No Living arrangements: with family 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/Education: 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 Gender identity (if verbalized by the patient): Female Spiritual care concerns: No Meds Home Medications and Allergies Home Medications ?Medication ?Instructions ?Recorded ?Confirmed ?Type docosahexaenoic acid 200 mg 200 mg PO DAILY 08/01/24 1 History capsule ( DHA) polyethylene glycol 3350 17 17 g PO DAILY 08/30/24 History gram/dose oral powder (Miralax) aspirin 81 mg tablet,delayed 81 mg PO DAILY 09/24/24 1 History release ondansetron 4 mg disintegrating 4 mg PO Q6H PRN nausea and 10/28/24 03/06/25 Rx tablet vomiting #20 tabs escitalopram oxalate 20 mg tablet See Rx Instructions .Route 01/06/25 03/13/25 Rx .COMPLEX #90 tabs RSV vac, preF A and preF B(PF) 120 0.5 ml IM ONCE #1 e a 02/20/25 03/13/25 Rx mcg/0.5 mL IM solution (Abrysvo (PF)) Allergies Allergy/AdvReac Type Severity Reaction Status Date / Time Penicillins Allergy Mild Hives Verified 03/13/25 17:17 Sulfa (Sulfonamide Allergy Mild Hives Verified 03/13/25 17:17 Antibiotics) cephalexin (From Keflex) AdvReac Mild Gastrointestinal Verified 03/13/25 17:17 Upset Vital Signs Vital Signs - 24 hr 03/13/25 16:46 Pulse Rate 91 Blood Pressure 125/79 Exam Const: General: cooperative, no acute distress and obese Nutritional Appearance: obese Orientation/consciousness: patient oriented x3 Resp: Effort & Inspection: normal respiratory effort Cardio: Rate: regular rate GI: GI Palp: No abdominal tenderness : Other: FHT's: 140's/ mod walt/ + accels/ no decels - cat 1 TOCO: ctxs Cervix: 4/90/-3 Membranes: AROM, clear 0750 Presentation: cephalic Skin: General skin exam: normal color Neuro: General: patient oriented x3 Extrem: General: normal to inspection Psych: Appearance: grossly normal Affect: normal affect Attitude: cooperative Assessment and Plan Assessment and plan (1) Encounter for induction of labor: Code(s): Z34.90 - Encounter for supervision of normal , unspecified, unspecified trimester Status: Acute Plan - Admitted overnight for induction of labor; risks and benefits discussed - s/p cervidil overnight; cervix _ - AROM, clear @ _ - High dose pitocin per protocol - Continuous monitoring - GBS neg - S/p Anesthesia consult
[2025-03-14] MEDS: OXYTOCIN 30 UNITS/NS 500 ML 30 UNITS/500 ML BAG 6 UNITS IV CONT (07:38)
[2025-03-14] MEDS: LORATADINE 10 MG TABLET PO (13:17)
--- NOTE | 2025-03-14 18:59 | PM.OBPNLAB ---
Pain Control Date/time seen: 03/14/25 18:59 Pain control: epidural Pelvic Exam Dilation (cm): 6 station: -2 Amniotic membrane status: Ruptured Contractions Monitor mode: Internal Contraction frequency: 4 Status status: Category ll Assessment and Plan Pitocin rate (mU/min): 0 Plan: Comments: She had a run of severe variables going down to 80's; pitocin was held, she was given an IV fluid bolus, and placed in trend. Baby has returned to baseline now. - pt still remained 6cm; and has been since 1345; meeting criteria for arrest of active phase now
[2025-03-14] MEDS: ONDANSETRON INJ 4 MG/2 ML VIAL IV PUSH (19:45)
[2025-03-14] MEDS: ACETAMINOPHEN 500 MG TABLET 1000 MG PO ×2 (19:45→23:50)
[2025-03-14] MEDS: FAMOTIDINE 20 MG/2 ML VIAL IV PUSH (19:45)
[2025-03-14] MEDS: AZITHROMYCIN IV 500 MG in SODIUM CHLORIDE 0.9% IV 250 ML IVPB (19:48)
[2025-03-14] MEDS: ceFAZolin 2 GM in SODIUM CHLORIDE 0.9% IV 50 ML 100 ML IVPB (19:48)
--- NOTE | 2025-03-14 20:39 | W.PM.OBCSD ---
OB - Delivery Note Procedure Delivery date: 03/14/25 Pre-op diagnosis: Arrest of Dilation, Elective Induction of Labor and Decelerations Post-op Diagnosis: Same Induction method: Per Cervidil Protocol Delivery augmentation: Rupture of Membranes and Pitocin Delivery monitor: External FHT and Internal Uterine Prior to decision for section, ACOG/SM labor guidelines were considered and discussed with the patient and staff. Decision made to proceed with the section.: Yes Procedure Performed: Primary Primary branch: low cervical, transverse Surgeon: Kasia Hand MD Anesthesia type: Epidural Description of Procedure/Findings: Female , ROT (asynclitic), clear fluid. Tight nuchal x1. Normal tubes/ovaries bilaterally. Good hemostasis at end of case. Specimen: Yes (placenta) Estimated Blood Loss: 685 Pathology: Yes (placenta) Complications: No immediate complications Condition: Stable Disposition: Floor Baby Date of : 03/14/25 Time of : 20:09 Gestational Age by Date: 39 (.6) gender: Female Weight (pounds): 6 Weight (ounces): 10 presentation: vertex position: Right Occiput Transverse Placenta delivery description: Expressed Cord Vessel Description: 3 Vessels, Nuchal Cord and Tight score one minute: 7 score five minutes: 8 Narrative: She was counseled on all risks and benefits in detail. She was taken to the operating room where epidural was found to be adeuqate. She was then prepped and draped in the normal sterile fashion. She received 2g Ancef and a time out was performed. A Pfannenstiel incision was made in the skin and carried down to the underlying fascia. The fascia was nicked on either side of the midline and the fascial incision was extended laterally and superiorly using curved Bruce scissors. The fascia was then elevated using Sylvain clamps and the underlying rectus muscles were dissected off the fascia, superiorly and inferiorly. The rectus muscles were then in the midline and the peritoneum was entered bluntly. Once adequate exposure was obtained, a Mobius self retractor was placed within the abdomen. A bladder flap was created. A low transverse incision was made on the lower uterine segment and clear fluid was noted. The occiput was brought to the hysterotomy and the head was easily delivered. The shoulders and body then followed without complications. The nuchal was reduced. The infants mouth and nose were bulb suctioned. The cord was clamped and cut and the was handed off to the awaiting pediatric nurse. A segment of the cord was collected for cord gases. The remaining cord blood was collected for typing. With Pitocin infusing, the placenta delivered with gentle traction on the cord without complications. The uterus was then cleared out of all clots and debris using a clean, moist lap. The hysterotomy was then repaired in a running, interlocking fashion using 0 Vicryl. A second layer imbricating suture was then made using 0 Vicryl. The hysterotomy was found to be hemostatic and good uterine tone was noted. The bilateral adnexa were examined and found to be normal. The pelvis was cleared of all clots and fluid. The Mobius retractor was removed from the abdomen. The peritoneum, muscle, and fascia were examined and made hemostatic with Bovie cautery. The fascia was then repaired using a 0 Vicryl suture in a running fashion. The subcutaneous tissue was then irrigated and made hemostatic with Bovie cautery. The subcutaneous tissue was then reapproximated using 2-0 Vicryl. The skin was then closed using 4-0 Monocryl in a running subcuticular fashion. A Mepilex dressing was placed over her incision. Sponge, lap, needle and instrument counts were correct at the end of the procedure x2. The patient tolerated the procedure well and was taken to recovery in a stable condition.
--- NOTE | 2025-03-14 21:14 | S_PTH ---
PATIENT: Deya Wilkerson LOC: [facility] U#:[id number] AGE/SX: 29/F ROOM: 285 RE03/13/[address]: Kasia Hand MD : [id number] BED: 00 DIS: 03/17/2025 SPEC #: [id number] RECD: 03/17/25 08:47 STATUS: RUSSELL REQ #: [id number] BAUTISTA: 03/14/25 21:[address]: Kasia Hand DEPT: [facility] Surgical RECD BY: Ivonne Obrien ENTERED: 03/17/25 08:47 SP TYPE: Surgical OTHR DR: Alfreda Carmona MD Tissues: A - Placenta Procedures: Hematoxylin and Eosin Stain Gross and Microscopic Level 5
[2025-03-14] MEDS: OXYTOCIN 30 UNITS/NS 500 ML 30 UNITS/500 ML BAG 125 UNITS IV CONT (22:15)
--- NOTE | 2025-03-14 23:20 | OBPPTRN ---
Patient transferred to post room #285 via stretcher. Support person present. Oriented to unit, room, information board, rooming in, admission packet and security measures. Patient verbalizes understanding.
[2025-03-14] MEDS: KETOROLAC 15 MG/ML VIAL (*BKC) IV PUSH (23:50)
[2025-03-15] MEDS: DEXTROSE 5%/0.45% SOD CHL 1,000 ML 125 ML IV CONT (02:23)
[2025-03-15 04:20] VITALS: BP 97/58; PULSE 76; RESP 16; TEMP 36.6; O2SAT 98
[2025-03-15 04:30] LABS: Hematocrit 31.0 % (37.0-47.0); Hemoglobin 10.2 g/dL (12.0-15.0); Immature Granulocyte Percent A 0.4 % (0-0.5); Lymphocytes Absolute Auto 3.80 K/mm3 (0.9-3.2); Mean Corpuscular HGB Conc 32.9 g/dl (32-36); Mean Corpuscular Hemoglobin 30.3 pg (26-34); Mean Corpuscular Volume 92.0 fl (80-100); Nucleated Red Blood Cells Absolute Auto 0.000 K/mm3 (0.0-0.012); Nucleated Red Blood Cells Perc 0.0 % (0.0-0.2); Platelet Count Result 161 k/mm3 (150-375); Red Blood Count 3.37 M/mm3 (4.2-5.4); White Blood Count 16.7 K/mm3 (4.5-10.0)
[2025-03-15] MEDS: KETOROLAC 15 MG/ML VIAL (*BKC) IV PUSH ×2 (05:20→11:08)
[2025-03-15] MEDS: ACETAMINOPHEN 500 MG TABLET 1000 MG PO ×4 (05:20→23:04)
[2025-03-15 07:35] VITALS: BP 111/59; PULSE 67; RESP 18; TEMP 36.8; O2SAT 97
--- NOTE | 2025-03-15 07:51 | P.PNOB_ITS ---
OB - PN: Subj Subjective Date/time seen: 03/15/25 07:51 Narrative: POD#1 Deya reports doing well today. Her bleeding isn't too heavy. Her pain is controlled with PO meds. She is tolerating regular diet, passing gas. Che is still in place; has not ambulated yet. She denies any issues with her incision. She is breast feeding/pumping. OB - PN: Obj Data Labs 03/15/25 04:16 Labs: Laboratory Results - last 24 hr 03/15/25 04:16 WBC 16.7 H RBC 3.37 L Hgb 10.2 L D Hct 31.0 L MCV 92.0 MCH 30.3 MCHC 32.9 RDW 13.7 Plt Count 161 MPV 10.0 Immature Gran % (Auto) 0.4 Neut % (Auto) 71.2 Lymph % (Auto) 22.7 [place] % (Auto) 5.0 Eos % (Auto) 0.5 Baso % (Auto) 0.2 Lymph # (Auto) 3.80 H [place] # (Auto) 0.8 H Eos # (Auto) 0.1 Baso # (Auto) 0.0 Abs Immat Gran (auto) 0.07 H Absolute Neuts (auto) 11.9 H Absolute Nucleated RBC 0.000 Nucleated RBC % 0.0 Blood Type B Negative Antibody Screen Negative Screen TNP Baby's Blood Type O pos Baby's ANNIKA Negative KB Hemoglobin Negative Doses of RhIg Required 1 OB - PN A/P Assessment and Plan (1) S/P section: Code(s): Z98.891 - History of uterine scar from previous surgery Status: Acute Plan day: 1 Plan: routine care Comments: - PO pain meds - Regular diet - Remove che - Ambulation and hydration encouraged - Continue putting baby to breast/pumping q2-3hr Time Spent With Patient Time: Total time spent is greater than 50% in coordination of care (as documented) at patient's floor/unit and/or counseling patient: Review of Systems 2 Constitutional: Constitutional: Denies chills, Denies fever(s) and Denies headache(s) Eyes: Eyes: Denies change in vision ENT: Denies dizziness and Denies headache(s) Cardiovascular: Cardiovascular: Denies chest pain, Denies palpitations and Denies dyspnea Respiratory: Respiratory: Denies cough and Denies dyspnea Gastrointestinal: Gastrointestinal: Denies nausea and Denies vomiting Genitourinary: Comments: normal bleeding Neurologic: Denies dizziness and Denies headache(s) Endocrine: Endocrine: Denies palpitations Exam 2 Const: General: cooperative, comfortable, no acute distress and obese N utritional Appearance: obese Orientation/consciousness: patient oriented x3 Resp: Effort & Inspection: normal respiratory effort Auscultation: clear to auscultation bilaterally Cardio: Rate: regular rate GI: Inspection: non-distended and incision (covered with clean dressing) GI Palp: Yes abdominal tenderness (appropriate) and Yes Soft to palpation A uscultation: normal bowel sounds : Other: fundus firm Urinary Catheter: Urinary Catheter: patent and draining and urine clear Skin: General skin exam: normal color Neuro: General: patient oriented x3 Extrem: General: normal to inspection Psych: Appearance: grossly normal Affect: normal affect Attitude: c ooperative
--- NOTE | 2025-03-15 08:15 | PC.NURSE ---
Patient attempting to feed infant. Baby is very eager as it has been 4 hours since the last feeding. Mom was given a nipple shield in the night for latching difficulty. We had baby in a football hold and initially she latched to the breast and maintained the seal. Mom is shown how to hold baby tight and close to help her hold the latch. After a few minutes, mom changed position and baby lost the latch. Baby is a tongue sucker and it is difficult to get her to open her mouth when she has started sucking on her tongue. Mom was shown how to use gentle chin traction to help elicit a wide gape. Mom states that baby did well with the nipple shield. Mom is educated on the risks of using the shield and the nipple shield handout was given. After attempting for a few minutes without success, we put the nipple shield on and baby was able to latch easily. Mom is encouraged to keep baby's head very close to the breast to prevent the shield from sliding in and out of baby's mouth. Mom needed to be reminded to hold baby close and was warned of the risks of nipple trauma when using the shield incorrectly. Patient is advised to use her Spectra breast pump for 15 minutes after with the nipple shield to assist with milk supply and stimulation. Mom is educated that milk is good at room temperature for up to 4 hours or that we can put milk in the breast milk refrigerator for future use. Mom knows to initiate each feeding without the nipple shield and to apply it only as needed. Primary RN updated.
[2025-03-15] MEDS: MULTIVIT/MIN/PREN/FOL AC/IRON TABLET 1 TAB PO (09:00)
[2025-03-15] MEDS: DOCUSATE SODIUM 100 MG CAPSULE PO ×2 (09:00→17:10)
[2025-03-15] MEDS: ESCITALOPRAM OXALATE 10 MG TABLET BY MOUTH (09:00)
[2025-03-15] MEDS: SIMETHICONE 80 MG TAB.CHEW PO ×3 (09:00→17:09)
[2025-03-15] MEDS: RHO(D) IMMUNE GLOBULIN 300 MCG/2 ML SYRINGE IM (13:50)
[2025-03-15 16:22] VITALS: BP 135/78; PULSE 86; RESP 18; TEMP 36.4; O2SAT 100
[2025-03-15] MEDS: IBUPROFEN 600 MG TABLET PO ×2 (17:10→23:04)
[2025-03-15 19:00] VITALS: BP 124/73; PULSE 83; RESP 18; TEMP 36.6
[2025-03-15] MEDS: oxyCODONE HCL (*CRX) 5 MG TAB IR 10 MG PO (19:00)
[2025-03-16] MEDS: IBUPROFEN 600 MG TABLET PO ×4 (04:56→23:04)
[2025-03-16] MEDS: ACETAMINOPHEN 500 MG TABLET 1000 MG PO ×4 (04:56→23:04)
[2025-03-16] MEDS: oxyCODONE HCL (*CRX) 5 MG TAB IR PO ×3 (04:56→23:04)
[2025-03-16 08:15] VITALS: BP 115/67; PULSE 89; RESP 14; TEMP 36.9; O2SAT 100
--- NOTE | 2025-03-16 08:50 | P.PNOB_ITS ---
OB - PN: Subj Subjective Date/time seen: 03/16/25 08:50 Narrative: POD#1 Deya reports doing well today. 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 Her pain is controlled. She is tolerating regular diet, voiding, passing gas, and ambulating without issues. She denies any issues with her incision. She is breast feeding. OB - PN: Obj Data Labs 03/15/25 04:16 Labs: Laboratory Results - last 24 hr 03/15/25 04:16 WBC 16.7 H RBC 3.37 L Hgb 10.2 L D Hct 31.0 L MCV 92.0 MCH 30.3 MCHC 32.9 RDW 13.7 Plt Count 161 MPV 10.0 Immature Gran % (Auto) 0.4 Neut % (Auto) 71.2 Lymph % (Auto) 22.7 [place] % (Auto) 5.0 Eos % (Auto) 0.5 Baso % (Auto) 0.2 Lymph # (Auto) 3.80 H [place] # (Auto) 0.8 H Eos # (Auto) 0.1 Baso # (Auto) 0.0 Abs Immat Gran (auto) 0.07 H Absolute Neuts (auto) 11.9 H Absolute Nucleated RBC 0.000 Nucleated RBC % 0.0 Blood Type B Negative Antibody Screen Negative Screen TNP Baby's Blood Type O pos Baby's ANNIKA Negative KB Hemoglobin Negative Doses of RhIg Required 1 OB - PN A/P Assessment and Plan (1) S/P section: Code(s): Z98.891 - History of uterine scar from previous surgery Status: Acute Plan day: 2 Plan: routine care Comments: - PO pain meds - Regular diet - Ambulation and hydration encouraged - Continue putting baby to breast q2-3hr Time Spent With Patient Time: Total time spent is greater than 50% in coordination of care (as documented) at patient's floor/unit and/or counseling patient: Review of Systems 2 Constitutional: Constitutional: Denies chills, Denies fever(s) and Denies headache(s) Eyes: Eyes: Denies change in vision ENT: Denies dizziness and Denies headache(s) Cardiovascular: Cardiovascular: Denies chest pain, Denies palpitations and Denies dyspnea Respiratory: Respiratory: Denies cough and Denies dyspnea Gastrointestinal: Gastrointestinal: Denies nausea and Denies vomiting Genitourinary: Comments: normal bleeding Neurologic: Denies dizziness and Denies headache(s) Endocrine: Endocrine: Denies palpitations Exam 2 Const: General: cooperative, comfortable and no acute distress O rientation/consciousness: patient oriented x3 Resp: Effort & Inspection: normal respiratory effort Auscultation: clear to auscultation bilaterally Cardio: Rate: regular rate GI: Inspection: non-distended and incision (covered with clean dressing) GI Palp: Yes abdominal tenderness (appropriate) and Yes Soft to palpation A uscultation: normal bowel sounds : Other: fundus firm Skin: General skin exam: normal color Neuro: General: patient oriented x3 Extrem: General: normal to inspection Psych: Appearance: grossly normal Affect: normal affect Attitude: c ooperative
[2025-03-16] MEDS: ESCITALOPRAM OXALATE 10 MG TABLET BY MOUTH (08:53)
[2025-03-16] MEDS: MULTIVIT/MIN/PREN/FOL AC/IRON TABLET 1 TAB PO (08:53)
[2025-03-16] MEDS: SIMETHICONE 80 MG TAB.CHEW PO ×2 (08:53→17:07)
[2025-03-16] MEDS: DOCUSATE SODIUM 100 MG CAPSULE PO ×2 (08:53→17:06)
[2025-03-16] MEDS: LIDOCAINE 5% PATCH 1 PATCH TRANSDERM (11:03)
[2025-03-16 16:06] VITALS: BP 117/66; PULSE 85; RESP 14; TEMP 37; O2SAT 99
[2025-03-16 19:13] VITALS: BP 128/80; PULSE 72; RESP 18; TEMP 36.6; O2SAT 98
[2025-03-17] MEDS: ACETAMINOPHEN 500 MG TABLET 1000 MG PO ×2 (04:39→10:27)
[2025-03-17] MEDS: IBUPROFEN 600 MG TABLET PO ×2 (04:40→10:27)
[2025-03-17] MEDS: oxyCODONE HCL (*CRX) 5 MG TAB IR 10 MG PO (04:40)
--- NOTE | 2025-03-17 07:08 | P.DS_ITS ---
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.1 - Secondary uterine inertia Status: Acute (2) heart deceleration: Status: Acute (3) S/P section: Code(s): Z98.891 - History of uterine scar from previous surgery Status: Acute OB - DS: Summary OB Procedures : Ultrasound OB Procedures Intrapartum: low cervical, transverse OB Procedures: : None Peripartum Data Delivery Method: Section Procedures: Procedures Operation Date: 03/14/25 19:00 Actual Procedure Side Surgeon p Section Not Applicable Kasia Hand MD complications: none 1: Gender: Female Disposition of : home Status at Discharge Functional status at discharge: independent ambulation Overall status at discharge: patient is back to baseline Time Spent with Patient Time attestation: Total time spent providing and/or coordinating discharge services: Exam Const: General: cooperative, comfortable, no acute distress and obese Nutritional Appearance: obese Orientation/consciousness: patient oriented x3 Resp: Effort & Inspection: normal respiratory effort Auscultation: clear to auscultation bilaterally Cardio: Rate: regular rate GI: Inspection: non-distended and incision (covered with clean dressing) GI Palp: No abdominal tenderness and Yes Soft to palpation Auscultation: normal bowel sounds : Other: fundus firm Skin: General skin exam: normal color Neuro: General: patient oriented x3 Extrem: General: normal to inspection Psych: Appearance: grossly normal Affect: normal affect Attitude: cooperative DS: Data Data Completed and Pending Pending studies at discharge: Pending at discharge 03/14/25 21:14 Surgical [PTH] Routine Labs on day of discharge: Labs from last 24 hours 03/15/25 04:16 Blood Type B Negative Antibody Screen Negative Screen TNP Baby's Blood Type O pos Baby's ANNIKA Negative KB Hemoglobin Negative Doses of RhIg Required 1 Discharge Plan Discharge Attending physician on discharge: Kasia Hand Discharging Clinician: Kasia Hand Patient Disposition: Home Activity: may shower and pelvic rest Diet: regular Discharge Instructions: Remove dressing on 03/20/25; then keep incision open to air, no ointments/creams No lifting over 15 lbs for 6 wks Patient Instructions: (DC) Patient Language: Bengali Stand Alone Forms: General Discharge Information Follow-up/Referrals: Kasia Hand MD [Physician, LAY OUT TECHNICIAN] - 4 Weeks Discharge Medications: New acetaminophen 500 mg Tablet 1,000 mg PO Q6HR Qty: 60 0RF docusate sodium 100 mg Capsule 100 mg PO BID Qty: 90 0RF ibuprofen 600 mg Tablet 600 mg PO Q6HR Qty: 40 0RF oxycodone 5 mg Tablet 5 mg PO Q4H PRN (Reason: Pain Rated 4-6) Qty: 18 0RF Continued DHA 200 mg capsule 200 mg PO DAILY polyethylene glycol 3350 [Miralax] 17 gram/dose powder 17 g PO DAILY escitalopram oxalate 20 mg tablet See Rx Instructions .ROUTE .COMPLEX Qty: 90 1RF Dose Instruction: TAKE 1 TABLET BY MOUTH EVERY DAY Rx Instructions: TAKE 1 TABLET BY MOUTH EVERY DAY Discontinued aspirin 81 mg tablet,delayed release (DR/EC) 81 mg PO DAILY Abrysvo (PF) 120 mcg/0.5 mL recon soln 0.5 ml IM ONCE Qty: 1 0RF Rx Instructions: as a single dose, 36w 5d today (02/20/25) ondansetron 4 mg tablet,disintegrating 4 mg PO Q6H PRN (Reason: nausea and vomiting) Qty: 20 2RF Date of admission: 03/13/25 15:52 Primary Care Provider: Alfreda Carmona Admitting Provider: Kasia Hand Attending physician on admission: Kasia Hand Condition: Stable
[2025-03-17 07:55] VITALS: BP 124/77; PULSE 78; RESP 16; TEMP 36.5; O2SAT 96
--- NOTE | 2025-03-17 09:30 | PC.NURSE ---
Consulted with mother concerning needs and she shared her ability to independently latch infant with the nipple shield. Mother is feeding appropriately for growth of and understands stimulating to eat if needed. Infant has had appropriate feedings in the last 24 hours meets the outcomes for weight, output, blood sugar and jaundice at this time. Reinforced understanding of milk production, transition of milk, signs of adequate intake, transition of stool, prevention/relief of engorgement, plugged ducts, mastitis, responsive , community resources (declines [facility] referral), and when to call a provider using the resource of the feeding sheet along with the mom and baby guide. She has her Spectra pump and a feeding plan with tips on weaning from the nipple shield is included with the discharge packet. Mother voiced understanding of the information shared, is confident to continue effectively her at home, when to call for assistance, denies any additional assistance or education at this time. Reported to the Primary RN.
[2025-03-17] MEDS: ESCITALOPRAM OXALATE 10 MG TABLET BY MOUTH (10:27)
[2025-03-17] MEDS: SIMETHICONE 80 MG TAB.CHEW PO (10:27)
[2025-03-17] MEDS: MULTIVIT/MIN/PREN/FOL AC/IRON TABLET 1 TAB PO (10:27)
[2025-03-17] MEDS: DOCUSATE SODIUM 100 MG CAPSULE PO (10:27)
[2025-03-18 10:15] VITALS: BP 126/68; PULSE 79; RESP 18; TEMP 36.6; O2SAT 100
--- NOTE | 2025-03-20 07:52 | WPDHPUPDATE1 ---
History and Physical Update Update Date/Time: 03/20/25 07:52 History and Physical has been reviewed, including an updated exam of the patient. There are NO changes in the patient's condition. Risks, benefits, and alternatives have been discussed and questions answered. Patient agrees to proceed with procedure.
== END 2025-03-17 11:15 | disposition home or self-care (01) | DRG 787 ==
LOC: ANHLDR 15:57 → ANHOB2 03-14 23:20
PROVIDERS: Admitting Provider Obstetrics & Gynecology; PCP Family Medicine; Visit Provider Obstetrics & Gynecology
PROC: 10D00Z1 Extraction of Products of Conception, Low, Open Approach (ICD-10-PCS; CPT 59514; principal; 2025-03-14 19:00)
DX: O69.1XX0 Labor and delivery complicated by cord around neck, with compression, not applicable or unspecified (principal); O75.2 Pyrexia during labor, not elsewhere classified; Z37.0 Single live birth; Z3A.39 39 weeks gestation of pregnancy; O99.344 Other mental disorders complicating childbirth; F41.9 Anxiety disorder, unspecified; O26.893 Other specified pregnancy related conditions, third trimester; Z67.91 Unspecified blood type, Rh negative; O62.1 Secondary uterine inertia; O76 Abnormality in fetal heart rate and rhythm complicating labor and delivery
CPT/HCPCS: 36415; 85025; 85460; 85461; 86593; 86850; 86900; 86901; 88307; 90384; J0690; A9270; J0456; J1165; J1885; J2004; J2274; J2405; J2590; J2790; J2795; J3010; J7050; J7120